=== PATIENT | female | born 1935 | race Caucasian/White ===

== ENCOUNTER 2017-05-12 13:09 | Inpatient (IN) ==
[2017-05-12] MEDS ORDERED: HYDROmorphone 2 MG/1 ML VIAL ONE (13:27)
[2017-05-12] MEDS ORDERED: ONDANSETRON 4 MG/2 ML VIAL IV PRN (13:27)
[2017-05-12] MEDS ORDERED: ONDANSETRON 4 MG/2 ML VIAL ONE (13:27)
[2017-05-12] MEDS ORDERED: HYDROmorphone 2 MG/1 ML VIAL IV PRN ×3 (13:27→15:25)
[2017-05-12] MEDS ORDERED: DIPH/TET/ACEL PERT BOOSTER VACCINE 0.5 ML VIAL IM ONE ×2 (13:28→15:06)
--- NOTE | 2017-05-12 13:54 | Emergency Department Note ---
Juan Manuel Chaves Brittany, am scribing for, and in the presence of, Lalo Walker MD 13:30. Denise Chaves James D, MD, personally performed the services described in this documentation, ascribed by Marysol Zambrano in my presence, and it is both accurate and complete [id number] . Arrival - Arrival Chief Complaint: Extremity Injury Stated Complaint: extremity injury ED Nursing Triage Note: Patient states that she tripped over a phone cord and fell. Right lower extremity injury. Deformity noted to lower extremity. Right lower extremity shortened and externally rotated. 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 Patient reports that she got entangled in a telephone cord in her bedroom and fell, resulting in deformity, shortening, and external rotation of the RLE. Denies hitting her head in the process, but did manage to obtain an upper lip laceration that is actively bleeding. Patient was given Fentanyl per EMS ASSOCIATE SALES REPRESENTATIVE. Denies pain at current, but states majority of her pain was just above the right knee. Patient has normal sensation to the RLE. Denies any abdominal pain, chest pain, back pain, or neck pain. Denies history of Diabetes Mellitus. PMHx of HTN. Not currently on any blood thinners. Patient has no other complaint/pain. Onset (ago): minute(s) Consistency: constant Date of Last Menstrual Period: Hysterectomy Allergies/Adverse Reactions: Allergies Allergy/AdvReac Type Severity Reaction Status Date / Time Penicillins AdvReac Intermediate HIVES Verified 03/17/16 10:59 Review of System - Review of System 12 point system: reviewed and no additional remarkable complaints except as stated - Review of System Constitutional: Absent: fever, weakness Eyes: Absent: vision change Head/Ears/Nose/Throat: Present: see HPI Cardiovascular: Absent: chest pain Gastrointestinal: Absent: abdominal pain Musculoskeletal: Present: as per HPI, leg pain Medical,Surgical,& Family Hx - Medical History Cardio: History of: Hypertension Gastrointestinal: History of: GERD - Surgical History Reproductive Surgeries: Surgical HX of;: Hysterectomy Orthopedic Surgeries: Surgical HX of;: Orthopedic Surgery, Total Knee Replacement - Social History Smoking Status: Never smoker Exam Physical Examination: GENERAL: This is a well-nourished, well-developed white female in no apparent distress. HEENT: Head is normocephalic and atraumatic. Pupils are equally round and reactive to light. Extraocular movement are intact. Oropharynx is bloody secondary to bleeding upper lip laceration with moist mucous membranes. This involves both the moist and dry portions of the upper lip. There is no malocclusion. NECK: Neck is soft and supple without tenderness. There are no masses. There is no lymphadenopathy. Trachea is midline. LUNGS: Lungs are clear to auscultation bilaterally. Chest rises symmetrically. There is no chest wall tenderness. CV: Heart is regular rate and rhythm without murmurs, rubs, or gallops. ABDOMEN: Abdomen is soft, non-tender to palpation. There are no abnormal masses palpated. There is no organomegaly. Bowel sounds are present and active. There is no tenderness to palpation overlying the iliac wings. SKIN: Skin is warm and dry. No rash. EXTREMITIES: Patient has shortening and external rotation of the RLE. Patient has 2 plus dorsalis pedis and posterior tibial pulses bilaterally. Patient has good sensation in the right and left feet to light touch. NEUROLOGIC: Awake, alert, and oriented x4. Cranial nerves II through XII are grossly intact. There are no motorsensory deficits. GCS is 15. PSYCHIATRIC: Normal affect. Normal mood. Vital Signs: Vital Signs Temperature 98 F 05/12/17 13:10 Pulse Rate 67 05/12/17 13:10 Respiratory Rate 20 05/12/17 13:10 Blood Pressure 174/66 05/12/17 13:10 Course Course Narrative: Upon arrival in the emergency department the patient was comfortable after having been given fentanyl in the ambulance. - Consultations Consultation #1: Admit to Dr. Charly Workman. Patient will need IM rodding of right femur. Time: 14:24 Consultation #2: Discussed with hospitalist. Patient will be admitted to their service. Time: 14:32 Procedures - Laceration Laceration 1 Site: lip Side (If applicable): right Size (cm): 5 Description: flap Depth: simple, single layer Local Anesthetic: lidocaine 1%, with epi Amount of Anesthesia Used (mL): 3 Pre-repair: wound explored Skin layer closed with: other (Chromic) Size: 5-0 Number of sutures: 7 Technique: simple, interrupted Results - Labs CBC & BMP: 05/12/17 14:33 Lab Results: I have reviewed the patients labs Labs: Laboratory Tests 05/12/17 14:33 WBC 11.7 RBC 4.18 Hgb 13.4 Hct 37.7 Plt Count 250 Neut % (Auto) 88.2 H Lymph % (Auto) 5.8 L Neut # (Auto) 10.3 H Lymph # (Auto) 0.7 L - EKG EKG results: interpreted by ERMD - Impressions EKG: Sinus rhythm with a rate of 61, first-degree AV block, nonspecific ST-T wave changes. - Diagnostic Findings Procedure: Chest x-ray: image reviewed by me (No infiltrates, no pleural effusions, no cardiomegaly.), CT: image reviewed by me (CT head: No acute intracranial lesion or hemorrhage.), X-ray: image reviewed by me (Right femur x- ray: Proximal transverse femur fracture. Total knee arthrosis is present.) Disposition Clinical Impression: Laceration of upper lip with complication, Fall at home, Contusion of head, Proximal right femur fracture, transvers Case discussed with: patient, patient's family Disposition: Still a Patient Condition: Stable Time of Disposition: 13:54
--- NOTE | 2017-05-12 14:08 | CT Report ---
Exam: CT scan of brain without contrast Date: 05/12/2017 Indication: Pain secondary to fall Comparison: 01/28/2013 Patient's classification: Emergency department Technical: Images were obtained from the skull base to the vertex without the use of intravenous contrast. Dose reduction was performed with decreasing kv and mA and automated exposure Total DLP: 1012.1 mGy*cm Findings: Small low densities present in the lateral aspect of the left basal ganglia suggests of a small tiny lacunar infarct which appears old unchanged from previous study 2012. Small vessel changes are present periventricular subcortical white matter regions. The brainstem cerebellum are otherwise intact. The frontal lobes reveal mild atrophy. The ventricles are slightly enlarged. Vascular calcification of the carotid arteries present. Paranasal sinuses globes and cell and mastoids reveal no acute findings. Nasal septum is deviated towards the left. Impression: 1. 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 No acute hemorrhage infarction or mass effect PROCEDURE INTERPRETED AT [facility] DEPARTMENT OF RADIOLOGY Final Report Signed by: Dr. Kirt Griffiths
--- NOTE | 2017-05-12 14:21 | XRay Report ---
XR chest 1V portable Indication: Extremity paresthesias Comparison: One January 2013 Findings: The heart and mediastinum are normal in size and configuration. The pulmonary vascularity is normal in caliber. Lung volumes are increased with prominent bronchial markings. Shoulder changes are similar to previous exam. No lung infiltrates, effusions, pneumothorax or other abnormality is demonstrated. Impression: Chronic lung changes. No acute process or significant change. PROCEDURE INTERPRETED AT [facility] DEPARTMENT OF RADIOLOGY Final Report Signed by: Dr. Yazan Boswell
--- NOTE | 2017-05-12 14:23 | XRay Report ---
XR femur RT Indication: Pain, falling injury Comparison: None available Findings: There is fracture of the proximal femur at the diaphyseal metaphyseal junction. There is overlap estimated up to 2.8 cm. The distal fragment is displaced posteriorly. The alignment of the joints appears normal. Knee arthroplasty is present, appears within normal limits. Mild hip degenerative change is present. No soft tissue abnormality is seen. Impression: Femur fracture as described above. PROCEDURE INTERPRETED AT [facility] DEPARTMENT OF RADIOLOGY Final Report Signed by: Dr. Yazan Boswell
[2017-05-12 14:54] LABS: Basophils # 0.1 10*3/uL (0.0-0.2); Basophils % 0.4 % (0.0-0.8); Eosinophils # 0.2 10*3/uL (0.0-0.87); Eosinophils % 1.6 % (0.00-10.9); Hematocrit 37.7 VOL% (35.7-47.0); Hemoglobin 13.4 GM/DL (12.0-16.0); Immature Granulocytes % 0.5 %; Immature Granulocytes Absolute 0.06 #; Lymphocytes # 0.7 10*3/uL (1.4-4.0); Lymphocytes % 5.8 % (21.3-54.2); Mean Corpuscular HGB Conc 35.5 GM/DL (32-36); Mean Corpuscular Hemoglobin 32 PG (27-34); Mean Corpuscular Volume 90.2 FL (87-102); Mean Platelet Volume 9.6 FL (9.6-12.0); Monocytes # 0.4 10*3/uL (0.11-0.8); Monocytes % 3.5 % (1.7-12.7); Neutrophils # 10.3 10*3/uL (1.4-7.4); Neutrophils % 88.2 % (38.7-73.9); Platelet Count 250 T/CUMM (130-400); Red Blood Count 4.18 MC/CUMM (3.8-5.5); Red Cell Distribution Width 12.8 % (9.3-17.3); White Blood Count 11.7 T/CUMM (4-12)
[2017-05-12 15:02] LABS: PT Patient Result 10.2 SECS; Partial Thromboplastin Time 26.7 SECS (0-40)
--- NOTE | 2017-05-12 15:04 | Hospitalist History & Physical ---
Assessment and Plan - Time spent with patient Time spent with patient: Greater than 30 minutes (1) Pain of right lower extremity due to injury Status: Acute Assessment and plan: Admit to Hospitalist services. Consult Othropedic (right femur fracture); patient did eat lunch today, Start IV fluids. Will order a.m. labs. Will discuss with Dr Posey for further recommendations. Current Visit: Yes (2) Laceration of upper lip with complication Status: Acute Assessment and plan: She was noted to have a upper lip laceration, stitches were placed in laceration of upper lip in the ER. bruising noted, without active bleeding and minimal swelling upon exam. 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 Will continue to monitor. Current Visit: Yes History of Present Illness Chief complaint: right leg injury History of present illness: Ms. Nails is a very pleasant 81 year old white female presented to [facility] ED for further evaluation for fall at home with right leg pain and upper lip laceration. Patient reports she got up to go into her bedroom at which point she got tangled up in the heating pad cord and fell face first onto the carpeted floor, sustaining immediate right leg pain with deformity. She denies hitting her head during the fall but did sustain an upper lip laceration. Denies breaking any of her teeth. Denies loss of consciousness. Her maid was at her home at the time of the fall and called EMS. She denies any other problems or complaints. Past medical history: Hypertension, GERD. Primary care physician: Dr. Bianchi. After discussion with Dr Walker ER physician and Dr Posey Hospitalist Medicine, it was in agreement, the patient will need to be admitted for further evaluation and treatment. Home medications will be reviewed and reconciliation to follow. Discussed Code Status with patient and her neighbor in the room but they felt or preferred the daughters would need to be present: verbalized the daughter has copies of the living will and/or has power of senior trial attorney. Home Medications Medication Instructions Recorded Confirmed Type Acyclovir [Acyclovir Cap/Tab] 800 mg PO TID 05/12/17 05/12/17 History Atenolol [Atenolol] 50 mg PO BID 05/12/17 05/12/17 History Atorvastatin Calcium [Atorvastatin 5 mg PO BEDTIME 05/12/17 05/12/17 History Calcium] Clorazepate Dipotassium 7.5 - 15 mg PO BEDTIME PRN 05/12/17 05/12/17 History [Clorazepate Dipotassium] Gabapentin [Gabapentin] 100 mg PO QAM 05/12/17 05/12/17 History Gabapentin [Gabapentin] 200 mg PO BEDTIME 05/12/17 05/12/17 History Pantoprazole Sodium [Pantoprazole 40 mg PO DAILY 05/12/17 05/12/17 History Sodium] Potassium Chloride [Potassium 8 meq PO DAILY 05/12/17 05/12/17 History Chloride] Thyroid,Pork [Westhroid] 32.5 mg PO DAILY 05/12/17 05/12/17 History Tramadol HCl [Tramadol Tab] 50 mg PO QID PRN 05/12/17 05/12/17 History Triamterene/Hydrochlorothiazid 1 each PO BID 05/12/17 05/12/17 History [Triamterene-Hctz 37.5-25 mg Cp] cycloSPORINE OPH EMUL [Restasis] 1 drop BOTH EYES BID 05/12/17 05/12/17 History Allergies Allergy/AdvReac Type Severity Reaction Status Date / Time Penicillins AdvReac Intermediate HIVES Verified 03/17/16 10:59 Medical,Surgical,& Family Hx - Medical History Cardio: History of: Hypertension Gastrointestinal: History of: GERD - Surgical History Reproductive Surgeries: Surgical HX of;: Hysterectomy Orthopedic Surgeries: Surgical HX of;: Orthopedic Surgery, Total Knee Replacement - Social History Smoking Status: Never smoker Type of Drug Use: None Marital Status: Lives With:: Alone Review of systems: ROS completed and pertinent positive and negatives in HPI. Exam - Constitutional Vitals: Period Temp Pulse Resp BP Sys/Aguila Pulse Ox Last 24 Hr 98 F-98.0 F 67-67 20-20 174-174/66-66 General appearance: normal weight, no acute distress, under weight - Head Head exam: Present: normal inspection - Eye Eye exam: Present: EOMI Pupils: Present: ARMAND - ENT ENT exam: Present: other (moist mucus membranes, bruising to upper lip (right sided), stitches intact to upper lip laceration/repair) - Neck Neck exam: Present: normal inspection - Respiratory Respiratory exam: Present: clear to auscultation bilaterally. Absent: rhonchi, wheezes - Cardiovascular Cardiovascular exam: Present: regular rate and rhythm - GI/Abdominal GI/Abdominal exam: Present: normal bowel sounds, soft. Absent: guarding, tenderness, rebound - Extremities Exam Extremities exam: Present: other (right lower leg immobilized, 2+ pulses bilateral) - Neurological Exam Neurological exam: Present: alert, oriented X3 - Psychiatric Psychiatric exam: Present: normal affect, normal mood - Skin Skin exam: Present: normal color, warm, dry Results - Labs CBC & BMP: 05/12/17 14:33 05/12/17 14:33 Lab Results: I have reviewed the past 24 hour labs - EKG EKG results: interpreted by ERMD - Diagnostic Findings Procedure: Chest x-ray: report reviewed by me (Chronic lung changes, no acute process or significant change), CT: report reviewed by me (Head: Small vessel ischemic change and 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
[2017-05-12 15:12] LABS: Albumin 3.9 G/DL (3.4-5.0); Bilirubin,Total 0.4 MG/DL (0.2-1.0); Calcium 9.1 MG/DL (8.5-10.1); Osmolality,Calculated 270.2 MOS/KG (273-304); Total Protein 6.4 G/DL (6.4-8.3)
[2017-05-12] MEDS ORDERED: MAGNESIUM HYDROXIDE SUSP 30 ML UDCUP PO PRN (15:16)
[2017-05-12] MEDS ORDERED: PROMETHAZINE 25 MG/1 ML VIAL IM PRN (15:16)
--- NOTE | 2017-05-12 15:31 | Orthopedic Consult Note ---
History of Present Illness Chief complaint: Right femur fracture History of present illness: Ms. Nails is a 81 year old female who fell at home earlier today she tripped in her bedroom sustaining immediate pain deformity about the right leg she was unable to bear weight but [place]'s emergency room where she underwent suture repair of a lip laceration as well as x-rays confirming a diaphyseal fracture of the right proximal femur does not have a local MD she has none of her medications available for review review but does not report to be on any anticoagulant. She ate lunch at noon Examination well-developed nourished female she has some soft tissue swelling consistent with arthritic changes about the hands no pain or deformity at the wrist forearm elbows to shoulder. There is no pain with gentle range of motion of the left lower extremity on the right side a traction splint is in place she can wiggle her toes is easily palpable pulse there is moderate deformity of the right thigh there is no evidence of any open injury. No pain or crepitation about her right knee well-healed incision over the anterior knee consistent with a total knee. Radiographs: AP and lateral of the right thigh confirming a proximal diaphyseal fracture of the right femur there is a total knee in place distally Impression: Right femur fracture Plan: Patient will be admitted for medical consultation as well as n.p.o. status will work on pain control using pillows in Boothe's traction tonight. Plan on intramedullary nailing in the a.m. this was discussed with she and her family is not present will be here in the a.m. again n.p.o. status tonight and pain control. Allergies Allergy/AdvReac Type Severity Reaction Status Date / Time Penicillins AdvReac Intermediate HIVES Verified 03/17/16 10:59 Medical,Surgical,& Family Hx - Medical History Cardio: History of: Hypertension Gastrointestinal: History of: GERD - Surgical History Reproductive Surgeries: Surgical HX of;: Hysterectomy Orthopedic Surgeries: Surgical HX of;: Orthopedic Surgery, Total Knee Replacement - Social History Smoking Status: Never smoker Exam - Constitutional Vitals: Period Temp Pulse Resp BP Sys/Aguila Pulse Ox Last 24 Hr 98 F-98.0 F 67-67 20-20 174-174/66-66 Results - Labs CBC & BMP: 05/12/17 14:33 05/12/17 14:33
[2017-05-12] MEDS ORDERED: SODIUM CHLORIDE 0.9% 500 ML IV STA (15:39)
--- NOTE | 2017-05-12 16:11 | XRay Report ---
XR hand 3V RT Indication: Pain after falling injury Comparison: None available Findings: No evidence of fracture seen. The alignment of the joints appears normal. Degenerative changes are present throughout the hand and wrist most prominent at the scaphoid carpal joint, metacarpophalangeal joint of the third digit distal interphalangeal joint of the second digit and proximal interphalangeal joints of the fourth and fifth digits. No soft tissue abnormality is seen. Impression: No evidence of acute injury demonstrated. PROCEDURE INTERPRETED AT [facility] DEPARTMENT OF RADIOLOGY Final Report Signed by: Dr. Yazan Boswell
[2017-05-12] MEDS: LACTATED RINGERS 1,000 ML IV SCH (18:40)
[2017-05-12] MEDS ORDERED: hydrALAZINE 20 MG/1 ML VIAL IV PRN (19:32)
[2017-05-12] MEDS: METHOCARBAMOL 500 MG TABLET PO SCH (20:44)
[2017-05-12] MEDS: ATENOLOL 50 MG TABLET PO SCH (20:44)
[2017-05-12] MEDS: MEPERIDINE 25 MG/1 ML VIAL IV PRN (21:23)
[2017-05-12] MEDS: TEMAZEPAM 15 MG CAPSULE PO PRN (21:23)
[2017-05-13 02:43] LABS: Basophils % 0.5 % (0.0-0.8); Eosinophils # 0.2 10*3/uL (0.0-0.87); Eosinophils % 2.3 % (0.00-10.9); Hematocrit 32.4 VOL% (35.7-47.0); Hemoglobin 11.2 GM/DL (12.0-16.0); Immature Granulocytes % 0.4 %; Immature Granulocytes Absolute 0.03 #; Lymphocytes # 0.9 10*3/uL (1.4-4.0); Lymphocytes % 12.5 % (21.3-54.2); Mean Corpuscular HGB Conc 34.6 GM/DL (32-36); Mean Corpuscular Hemoglobin 31 PG (27-34); Mean Corpuscular Volume 90.3 FL (87-102); Mean Platelet Volume 9.8 FL (9.6-12.0); Monocytes # 0.7 10*3/uL (0.11-0.8); Monocytes % 9.2 % (1.7-12.7); Neutrophils # 5.6 10*3/uL (1.4-7.4); Neutrophils % 75.1 % (38.7-73.9); Platelet Count 215 T/CUMM (130-400); Red Blood Count 3.59 MC/CUMM (3.8-5.5); Red Cell Distribution Width 12.7 % (9.3-17.3); White Blood Count 7.5 T/CUMM (4-12)
[2017-05-13] MEDS: MEPERIDINE 25 MG/1 ML VIAL IV PRN ×4 (03:01→20:51)
[2017-05-13 03:09] LABS: Calcium 8.6 MG/DL (8.5-10.1); Osmolality,Calculated 269.2 MOS/KG (273-304); Potassium 3.7 MMOL/L (3.5-5.1)
[2017-05-13] MEDS ORDERED: CLINDAMYCIN INJ 900 MG in PREMIX 1 EACH IV ONE (07:00)
--- NOTE | 2017-05-13 07:04 | EKG Report ---
Stationary ECG Study [facility] ER Test Date: 05/12/2017 2:34:20 PM Pat Name: PERI DUARTE Department: Room: 321 Gender: F Clinical Auditor: : [id number] Requested by: Lalo Rodriguez Order Number: [id number] Alhponso MD: MARIO DENISE Intervals [place] Rate: 61 P: 66 CT: 276 QRS: -11 QRSD: 98 T: 67 QT: 405 QTc: 409 Interpretive Statements SINUS RHYTHM WITH PROLONGED CT INTERVAL Electronically Signed On 05-14-17 06:13:57 CDT by MARIO DENISE [email or web address]
[2017-05-13] MEDS: TRIAMTERENE/HCTZ 37.5-25 MG CAPSULE PO SCH ×2 (07:15→08:02)
[2017-05-13] MEDS ORDERED: LACTULOSE 20 GM/30 ML UDCUP PO PRN (09:23)
[2017-05-13] MEDS ORDERED: BISACODYL 10 MG SUPP RECTAL PRN (09:23)
[2017-05-13] MEDS ORDERED: MEPERIDINE 25 MG/1 ML VIAL IV PRN (09:32)
[2017-05-13] MEDS ORDERED: ONDANSETRON 4 MG/2 ML VIAL IV PRN (09:50)
[2017-05-13] MEDS ORDERED: HYDROmorphone 2 MG/1 ML VIAL IV PRN (09:50)
--- NOTE | 2017-05-13 09:50 | XRay Report ---
XR femur RT Indication: IM nail right femur. Fluoroscopy right femur: Fluoroscopy time 93 seconds, 8 captured images. IM nail is now present securing mid shaft femur fracture in anatomic alignment. Incidentally noted TKA is present as well. Impression: Anatomic alignment. PROCEDURE INTERPRETED AT [facility] DEPARTMENT OF RADIOLOGY Final Report Signed by: Ritesh Simms M.D.
[2017-05-13] MEDS ORDERED: LACTATED RINGERS 1,000 ML IV SCH (10:00)
[2017-05-13] MEDS: ATENOLOL 50 MG TABLET PO SCH ×2 (10:33→20:52)
[2017-05-13] MEDS: METHOCARBAMOL 500 MG TABLET PO SCH ×3 (10:33→20:52)
[2017-05-13] MEDS ORDERED: fentaNYL 100 MCG/2 ML VIAL ONE (11:31)
[2017-05-13] MEDS ORDERED: SODIUM CHLORIDE 0.9% 100 ML IV ONE (11:31)
[2017-05-13] MEDS ORDERED: GLYCOPYRROLATE 0.4 MG/2 ML VIAL ONE (11:31)
[2017-05-13] MEDS ORDERED: LACTATED RINGERS 1,000 ML IV ONE (11:31)
[2017-05-13] MEDS ORDERED: ACETAMINOPHEN 1,000 MG/100 ML VIAL IV ONE (11:31)
[2017-05-13] MEDS ORDERED: PROPOFOL 200 MG/20 ML VIAL IV ONE (11:31)
[2017-05-13] MEDS ORDERED: ONDANSETRON 4 MG/2 ML VIAL ONE (11:31)
--- NOTE | 2017-05-13 11:44 | Anesthesia Post-Op ---
Anesthesia Post OP - Post Ansesthetic Evaluation Patient seen in post op: Yes Resp: within normal limits CV: within normal limits Mental: within normal limits Temp: within normal limits [id number]: within normal limits Nausea and Vomiting: within normal limits Pain: within normal limits
[2017-05-13] MEDS: LACTATED RINGERS 1,000 ML IV SCH (11:47)
--- NOTE | 2017-05-13 12:23 | Hospitalist Progress Note ---
Assessment and Plan - Time spent with patient Time spent with patient: Less than 30 minutes (1) Pain of right lower extremity due to injury Status: Acute Assessment and plan: 05/13/17 - S/P IM nailing right femur fracture. Back in room and doing well at present, dressings clean, dry and intact. Ice Pack therapy in use. Pulses bilaterally palpable. Will continue to monitor. Will order a.m. labs. 05/12/17 -Admit to Hospitalist services. Consult Othropedic (right femur fracture ); patient did eat lunch today, Start IV fluids. Will order a.m. labs. Will discuss with Dr Posey for further recommendations. Current Visit: Yes (2) Laceration of upper lip with complication Status: Acute Assessment and plan: 05/13/17 - Upper lip laceration with repair (stitches intact); noted to have some bruising and swelling. Without any active bleeding or drainage. Will continue to monitor. 05/12/17 - She was noted to have a upper lip laceration, stitches were placed in laceration of upper lip in the ER. bruising noted, without active bleeding and minimal swelling upon exam. 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 Will continue to monitor. Current Visit: Yes Hospitalist: Subjective Interval history: 05/13/17 - patient awake, alert. She recently returned to room following this a.m. scheduled surgery of intramedullary nailing right femur. She appears comfortable at this time and no acute distress. Lungs clear. Abd soft. Soto intact draining clear yellow urine. Dressing to right leg dry and intact with ice pack therapy in use. Pulses bilaterally palpable. Patient verbalized pain medication for management of pain is helping at this time. Exam - Constitutional Vitals: Period Temp Pulse Resp BP Sys/Aguila Pulse Ox Last 24 Hr 97.2 F-98.4 F 58-92 14-20 102-174/61-76 94-100 General appearance: normal weight - Head Head exam: Present: normal inspection - Eye Eye exam: Present: EOMI Pupils: Present: ARMAND - ENT ENT exam: Present: other (moist mucus membranes) - Neck Neck exam: Present: normal inspection - Respiratory Respiratory exam: Present: clear to auscultation bilaterally - Cardiovascular Cardiovascular exam: Present: regular rate and rhythm - GI/Abdominal GI/Abdominal exam: Present: normal bowel sounds, soft. Absent: tenderness, rebound - Extremities Exam Extremities exam: Present: other (s/p right femur fracture repair: right leg with clean dry intact dressings, ice pack therapy to surgical site). Absent: edema - Neurological Exam Neurological exam: Present: alert, oriented X3 - Psychiatric Psychiatric exam: Present: normal affect, normal mood - Skin Skin exam: Present: normal color, warm, dry Results - Labs CBC & BMP: 05/13/17 02:22 05/13/17 02:22 Lab Results: I have reviewed the past 24 hour labs - Diagnostic Findings Procedure: X-ray: report reviewed by me (Right Femur IM nailing: anatomic alignment) Quality Measures - VTE Contraindication to Pharmacological VTE Prophylaxis: Extremities with Hemorrhage
[2017-05-13] MEDS: CLINDAMYCIN INJ 900 MG in PREMIX 1 EACH IV SCH (15:57)
[2017-05-13] MEDS: ALUMINUM/MAGNES/SIMETH MAX STR 30 ML UDCUP PO PRN (17:09)
--- NOTE | 2017-05-13 19:00 | Operative Note ---
DATE: 05/13/2017 PREOPERATIVE DIAGNOSIS: RIGHT FEMUR FRACTURE. POSTOPERATIVE DIAGNOSIS: RIGHT FEMUR FRACTURE. OPERATIVE PROCEDURE: Intramedullary nailing, right femur. SURGEON: Lalo Parks Jr., MD. ANESTHESIA: Spinal. INDICATION: A 81-year-old white female fell at home yesterday sustaining a diaphyseal fracture to th e proximal right femoral shaft. She has been cleared medically for surgery. I have discussed with marivel tyson and her family the diagnosis and treatment recommendations including the need for intramedullary d evice. OPERATIVE PROCEDURE: The patient was brought to the operating room and under spinal anesthetic posit ioned on the fracture table. The left leg was placed in a well padded leg carias and the right place d in a traction boot. Gentle traction and rotation were applied to the limb to confirm alignment. Adilson tyson hip was then prepped and draped in the usual sterile manner. She received clindamycin perioperati vely. A small incision was made proximal to the trochanter of the right hip. Sharp dissection was c arried down through the skin and subcutaneous tissue. The gluteal musculature was split and starting points obtained in the trochanter. A guide pin was then passed across the fracture site into the di stal fragment. After that measuring 400 mm, sequential reamings were performed up to 10.5 mm. A 9 x 400 mm trochanter Synthes femoral nail was inserted. It was locked in the dynamic slot proximally t hrough the outrigger system slot distally x2 freehand technique. Reduction and internal fixation was felt to be satisfactory. All wounds were irrigated and closed in standard fashion using 0-Vicryl fo r the gluteal layer, 2-0 Vicryl subcutaneous layer and laureen for skin. Locking portals also closed with laureen for the distal lock as well as the proximal. Sterile dressings were applied. She was then moved to her bed and taken to recovery room stable condition. ESTIMATED BLOOD LOSS: 100 mL. COMPLICATIONS: None. COUNTS: Correct.
[2017-05-13] MEDS: GABAPENTIN 100 MG CAPSULE PO SCH (20:51)
[2017-05-13] MEDS: APIXABAN 2.5 MG TABLET PO SCH (20:52)
[2017-05-13] MEDS: diphenhydrAMINE CAP 25 MG CAPSULE PO PRN (21:25)
[2017-05-14] MEDS: CLINDAMYCIN INJ 900 MG in PREMIX 1 EACH IV SCH ×2 (00:18→11:04)
[2017-05-14 05:32] LABS: Basophils % 0.6 % (0.0-0.8); Eosinophils # 0.2 10*3/uL (0.0-0.87); Eosinophils % 3.4 % (0.00-10.9); Hematocrit 27.2 VOL% (35.7-47.0); Hemoglobin 9.7 GM/DL (12.0-16.0); Immature Granulocytes % 0.3 %; Immature Granulocytes Absolute 0.02 #; Lymphocytes % 14.8 % (21.3-54.2); Mean Corpuscular HGB Conc 35.7 GM/DL (32-36); Mean Corpuscular Hemoglobin 32 PG (27-34); Mean Corpuscular Volume 89.8 FL (87-102); Mean Platelet Volume 10.1 FL (9.6-12.0); Monocytes # 0.6 10*3/uL (0.11-0.8); Monocytes % 9.4 % (1.7-12.7); Neutrophils # 4.6 10*3/uL (1.4-7.4); Neutrophils % 71.5 % (38.7-73.9); Platelet Count 189 T/CUMM (130-400); Red Blood Count 3.03 MC/CUMM (3.8-5.5); Red Cell Distribution Width 12.5 % (9.3-17.3); White Blood Count 6.5 T/CUMM (4-12)
[2017-05-14] MEDS: LACTATED RINGERS 1,000 ML IV SCH (07:36)
--- NOTE | 2017-05-14 08:39 | Hospitalist Progress Note ---
Assessment and Plan - Time spent with patient Time spent with patient: Less than 30 minutes (1) Pain of right lower extremity due to injury Status: Acute Assessment and plan: 05/14/17 - Dressings clean, dry and intact right femur IM nailing. Bilateral pedal pulses palpable. Will continue to monitor. Will continue PRN medications for pain management. Will continue Ice Pack therapy for pain and inflammation. A.M. labs ordered. Will discuss with Dr Ferrera for any further recommendations. 05/13/17 - S/P IM nailing right femur fracture. Back in room and doing well at present, dressings clean, dry and intact. Ice Pack therapy in use. Pulses bilaterally palpable. Will continue to monitor. Will order a.m. labs. 05/12/17 -Admit to Hospitalist services. Consult Othropedic (right femur fracture ); patient did eat lunch today, Start IV fluids. Will order a.m. labs. Will discuss with Dr Posey for further recommendations. Current Visit: Yes (2) Laceration of upper lip with complication Status: Acute Assessment and plan: 05/14/17 Upper lip laceration with stitches intact, sore but improving. Healing without any drainage noted. Will continue to monitor. 05/13/17 - Upper lip laceration with repair (stitches intact); noted to have some bruising and swelling. Without any active bleeding or drainage. Will continue to monitor. 05/12/17 - She was noted to have a upper lip laceration, stitches were placed in laceration of upper lip in the ER. bruising noted, without active bleeding and minimal swelling upon exam. 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 Will continue to monitor. Current Visit: Yes Hospitalist: Subjective Interval history: 05/14/17 - Patient seen and chart reviewed. Ms finney verbalized a pretty good night. Her appetite is better this morning and tolerating breakfast. Her right leg pain is controlled at present. Pulses 2+ bilateral pedal pulses. Dressing dry and intact with ice pack therapy in use. Her upper lip laceration with stitches intact, no active bleeding and no drainage. Soto intact and draining clear yellow urine. She verbalized reflux yesterday and the mylanta seems to have helped. Denies nausea, chills, cough, or shortness of breath. Exam - Constitutional Vitals: Period Temp Pulse Resp BP Sys/Aguila Pulse Ox Last 24 Hr 97.9 F-99.2 F 65-92 14-20 102-137/58-77 91-100 General appearance: normal weight - Head Head exam: Present: normal inspection - Eye Eye exam: Present: EOMI Pupils: Present: ARMAND - ENT ENT exam: Present: other (moist membranes) - Neck Neck exam: Present: normal inspection - Respiratory Respiratory exam: Present: clear to auscultation bilaterally. Absent: rhonchi, wheezes - Cardiovascular Cardiovascular exam: Present: regular rate and rhythm - GI/Abdominal GI/Abdominal exam: Present: normal bowel sounds, soft. Absent: firm, rebound - Extremities Exam Extremities exam: Present: other (right leg dressings clean, dry intact s/p right IM nailing. ). Absent: edema - Neurological Exam Neurological exam: Present: alert, oriented X3, CN II-XII intact. Absent: normal gait (unable to assess ) - Psychiatric Psychiatric exam: Present: normal affect, normal mood - Skin Skin exam: Present: normal color, warm, dry, other (upper lip laceration ( repaired in the ED) clean, dry,) Results - Labs CBC & BMP: 05/14/17 04:59 05/13/17 02:22 Lab Results: I have reviewed the past 24 hour labs Quality Measures - VTE Contraindication to Pharmacological VTE Prophylaxis: Extremities with Hemorrhage
--- NOTE | 2017-05-14 09:14 | Orthopedic Progress Note ---
Orthopedics - Subjective Interval history: Hemoglobin is 9.7 ready for PT will remove Soto once started to mobilize also INT. Follow H&H. Discussed with [facility] bed rehab options Exam - Constitutional Vitals: Period Temp Pulse Resp BP Sys/Aguila Pulse Ox Last 24 Hr 97.9 F-99.2 F 65-92 14-20 102-137/58-77 91-100 Results - Labs CBC & BMP: 05/14/17 04:59 05/13/17 02:22 Quality Measures - VTE Contraindication to Pharmacological VTE Prophylaxis: Extremities with Hemorrhage
[2017-05-14] MEDS ORDERED: MEPERIDINE 50 MG TABLET PO PRN (09:15)
[2017-05-14] MEDS: APIXABAN 2.5 MG TABLET PO SCH ×2 (10:39→21:42)
[2017-05-14] MEDS: POTASSIUM CHLORIDE 20 MEQ TABLET PO SCH (10:40)
[2017-05-14] MEDS: GABAPENTIN 100 MG CAPSULE PO SCH ×3 (10:40→21:42)
[2017-05-14] MEDS: METHOCARBAMOL 500 MG TABLET PO SCH ×3 (10:41→21:42)
[2017-05-14] MEDS: ATENOLOL 50 MG TABLET PO SCH ×2 (10:42→21:42)
[2017-05-14] MEDS: diphenhydrAMINE CAP 25 MG CAPSULE PO PRN (10:42)
[2017-05-14] MEDS: MEPERIDINE 50 MG TABLET PO PRN ×2 (11:12→15:25)
[2017-05-14] MEDS: ALUMINUM/MAGNES/SIMETH MAX STR 30 ML UDCUP PO PRN (11:34)
[2017-05-14] MEDS: TRIAMTERENE/HCTZ 37.5-25 MG CAPSULE PO SCH (11:46)
[2017-05-14] MEDS: ONDANSETRON 4 MG/2 ML VIAL IV PRN ×2 (12:55→16:53)
[2017-05-14] MEDS: PANTOPRAZOLE 40 MG TABLET PO SCH (21:42)
[2017-05-15] MEDS: MEPERIDINE 50 MG TABLET PO PRN ×4 (01:41→20:21)
[2017-05-15 05:20] LABS: Basophils % 0.3 % (0.0-0.8); Eosinophils # 0.2 10*3/uL (0.0-0.87); Eosinophils % 2.4 % (0.00-10.9); Hematocrit 27.8 VOL% (35.7-47.0); Hemoglobin 9.8 GM/DL (12.0-16.0); Immature Granulocytes % 0.4 %; Immature Granulocytes Absolute 0.03 #; Lymphocytes # 0.9 10*3/uL (1.4-4.0); Lymphocytes % 12.7 % (21.3-54.2); Mean Corpuscular HGB Conc 35.3 GM/DL (32-36); Mean Corpuscular Hemoglobin 32 PG (27-34); Mean Platelet Volume 10.7 FL (9.6-12.0); Monocytes # 0.9 10*3/uL (0.11-0.8); Monocytes % 13.3 % (1.7-12.7); Neutrophils # 4.7 10*3/uL (1.4-7.4); Neutrophils % 70.9 % (38.7-73.9); Platelet Count 205 T/CUMM (130-400); Red Blood Count 3.09 MC/CUMM (3.8-5.5); Red Cell Distribution Width 12.5 % (9.3-17.3); White Blood Count 6.7 T/CUMM (4-12)
[2017-05-15 06:05] LABS: Calcium 8.4 MG/DL (8.5-10.1); Free T4 (Free Thyroxine) 1.13 NG/DL (0.76-1.46); Magnesium 1.6 MG/DL (1.8-2.4); Osmolality,Calculated 257.8 MOS/KG (273-304); Potassium 4.4 MMOL/L (3.5-5.1)
[2017-05-15] MEDS: GABAPENTIN 100 MG CAPSULE PO SCH ×3 (08:37→20:21)
[2017-05-15] MEDS: METHOCARBAMOL 500 MG TABLET PO SCH ×3 (08:37→20:23)
[2017-05-15] MEDS: ATENOLOL 50 MG TABLET PO SCH ×2 (08:37→20:23)
[2017-05-15] MEDS: APIXABAN 2.5 MG TABLET PO SCH ×2 (09:55→20:24)
[2017-05-15] MEDS: PANTOPRAZOLE 40 MG TABLET PO SCH (09:55)
[2017-05-15] MEDS: POTASSIUM CHLORIDE 20 MEQ TABLET PO SCH (09:55)
[2017-05-15] MEDS: TRIAMTERENE/HCTZ 37.5-25 MG CAPSULE PO SCH (09:58)
--- NOTE | 2017-05-15 11:23 | Orthopedic Progress Note ---
Orthopedics - Subjective Interval history: H&H stable already up in chair with PT today did well. Continue working with PT and advancing weight-bear as tolerated on the right. Awaiting discharge planning for rehab. Exam - Constitutional Vitals: Period Temp Pulse Resp BP Sys/Aguila Pulse Ox Last 24 Hr 97.1 F-99.4 F 63-77 16-18 114-139/60-81 94-98 Results - Labs CBC & BMP: 05/15/17 04:06 05/15/17 04:06 Quality Measures - VTE Contraindication to Pharmacological VTE Prophylaxis: Extremities with Hemorrhage Specialty Discharge - Follow Up or Referrals Follow up with: Lalo Parks Jr., MD [Physician] -
--- NOTE | 2017-05-15 15:31 | Hospitalist Progress Note ---
Assessment and Plan (1) Right femoral fracture Status: Acute Assessment and plan: s/p repair per orthopedic; pain control; awaiting placement for rehab Current Visit: Yes Hospitalist: Subjective Interval history: Ms. Nails is a 81 y/o female with history of HTN that was admitted for a right femur fracture s/p repair. Patient is without complaints. Exam - Constitutional Vitals: Period Temp Pulse Resp BP Sys/Aguila Pulse Ox Last 24 Hr 97.1 F-99.4 F 65-77 18-18 124-139/67-82 95-98 General appearance: normal weight, no acute distress - Head Head exam: Present: normal inspection - Eye Eye exam: Present: EOMI - Neck Neck exam: Present: normal inspection - Respiratory Respiratory exam: Present: clear to auscultation bilaterally - Cardiovascular Cardiovascular exam: Present: regular rate and rhythm - GI/Abdominal GI/Abdominal exam: Present: normal bowel sounds, soft. Absent: tenderness - Extremities Exam Extremities exam: Present: other (right thigh/hip incision bandages are clean dry and intact). Absent: edema Results - Labs CBC & BMP: 05/15/17 04:06 05/15/17 04:06 Quality Measures - VTE Contraindication to Pharmacological VTE Prophylaxis: Extremities with Hemorrhage Specialty Discharge - Follow Up or Referrals Follow up with: Lalo Parks Jr., MD [Physician] -
[2017-05-15] MEDS: TEMAZEPAM 15 MG CAPSULE PO PRN (22:55)
[2017-05-16] MEDS: MEPERIDINE 50 MG TABLET PO PRN ×5 (01:40→21:46)
[2017-05-16 07:25] LABS: Basophils % 0.4 % (0.0-0.8); Eosinophils # 0.2 10*3/uL (0.0-0.87); Eosinophils % 4.2 % (0.00-10.9); Hemoglobin 9.5 GM/DL (12.0-16.0); Immature Granulocytes % 0.5 %; Immature Granulocytes Absolute 0.03 #; Lymphocytes # 0.8 10*3/uL (1.4-4.0); Lymphocytes % 14.9 % (21.3-54.2); Mean Corpuscular HGB Conc 35.2 GM/DL (32-36); Mean Corpuscular Hemoglobin 32 PG (27-34); Mean Corpuscular Volume 90.6 FL (87-102); Mean Platelet Volume 9.8 FL (9.6-12.0); Monocytes # 0.8 10*3/uL (0.11-0.8); Monocytes % 14.2 % (1.7-12.7); Neutrophils # 3.6 10*3/uL (1.4-7.4); Neutrophils % 65.8 % (38.7-73.9); Platelet Count 207 T/CUMM (130-400); Red Blood Count 2.98 MC/CUMM (3.8-5.5); Red Cell Distribution Width 12.4 % (9.3-17.3); White Blood Count 5.5 T/CUMM (4-12)
[2017-05-16 08:00] LABS: Albumin 2.7 G/DL (3.4-5.0); Bilirubin,Total 1.8 MG/DL (0.2-1.0); Calcium 8.6 MG/DL (8.5-10.1); Osmolality,Calculated 266.2 MOS/KG (273-304); Potassium 4.2 MMOL/L (3.5-5.1); Total Protein 4.9 G/DL (6.4-8.3)
[2017-05-16] MEDS: ATENOLOL 50 MG TABLET PO SCH ×2 (08:27→21:48)
[2017-05-16] MEDS: POTASSIUM CHLORIDE 20 MEQ TABLET PO SCH (08:27)
[2017-05-16] MEDS: METHOCARBAMOL 500 MG TABLET PO SCH ×3 (08:27→21:48)
[2017-05-16] MEDS: GABAPENTIN 100 MG CAPSULE PO SCH ×3 (08:27→21:48)
[2017-05-16] MEDS: APIXABAN 2.5 MG TABLET PO SCH ×2 (08:27→21:48)
[2017-05-16] MEDS: TRIAMTERENE/HCTZ 37.5-25 MG CAPSULE PO SCH (08:27)
[2017-05-16] MEDS: PANTOPRAZOLE 40 MG TABLET PO SCH (08:28)
--- NOTE | 2017-05-16 08:54 | Orthopedic Progress Note ---
Orthopedics - Subjective Interval history: Pain control good hemoglobin hematocrit stable. Continue working on PT needs to have BM today rehab soon Exam - Constitutional Vitals: Period Temp Pulse Resp BP Sys/Aguila Pulse Ox Last 24 Hr 97.6 F-98.0 F 63-73 16-18 116-144/44-82 94-97 Results - Labs CBC & BMP: 05/16/17 07:10 05/16/17 07:10 Quality Measures - VTE Contraindication to Pharmacological VTE Prophylaxis: Extremities with Hemorrhage Specialty Discharge - Follow Up or Referrals Follow up with: Lalo Parks Jr., MD [Physician] -
[2017-05-16] MEDS: ACETAMINOPHEN 325 MG TABLET PO PRN (10:32)
--- NOTE | 2017-05-16 12:49 | Hospitalist Progress Note ---
Hospitalist: Subjective Interval history: Pt reports her leg pain is relatively under control. No fever. No cp or SOB. Tolerating some po. No BM since admission per pt. She has stood and participated with therapy. Exam - Constitutional Vitals: Period Temp Pulse Resp BP Sys/Aguila Pulse Ox Last 24 Hr 97.6 F-98.0 F 63-73 16-18 116-144/44-67 94-97 Exam: A and O x 3 RRR no M CTAB nonlabored Soft, NT, ND, +BS Warm no c/c. She is nonpitting edema of left upper thigh.. Good cap refill and sensation is intact. Results - Labs CBC & BMP: 05/16/17 07:10 05/16/17 07:10 - Impressions 1. Acute right proximal femoral fracture s/p fall s/p repair - Ortho following. Cont routine post op care. PT/OT. Fall precautions 2. Laceration of upper lip due to fall - local wound care 3. Essential HTN- controlled - On Atenolol, Triamterene/ HCTZ. Daughter states she has a history chronic lower extremity edema. She does not state she has a hx of CHF 4. Constipation - MOM given this am. Will write for Dulcolax and Soap Suds enema prn 5. Mild hyponatremia - likely due to triamterene/ hctz. Na 134 today. Daughter states she has been on this for years. 6. Suspected neuropathy - Gabapentin. 7. GERD - On Protonix. 8. 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 9. Dyslipidemia - not on statin 10. Chronic hypothyroidism - on thyroid replacement meds. Check TSH DVT prophylaxis- Eunice D/W nurse, pt and daughter, Yissel. All questions answered. Plans are to go to the swingbed at discharge once she has a bowel movement. Quality Measures - VTE Contraindication to Pharmacological VTE Prophylaxis: Extremities with Hemorrhage Specialty Discharge - Follow Up or Referrals Follow up with: Lalo Parks Jr., MD [Physician] -
[2017-05-16] MEDS ORDERED: BISACODYL 5 MG TABLET PO PRN (13:19)
[2017-05-16] MEDS: TEMAZEPAM 15 MG CAPSULE PO PRN (21:46)
[2017-05-17] MEDS: MEPERIDINE 50 MG TABLET PO PRN ×2 (01:50→08:58)
[2017-05-17] MEDS: ACETAMINOPHEN 325 MG TABLET PO PRN (03:01)
[2017-05-17] MEDS: GABAPENTIN 100 MG CAPSULE PO SCH (08:57)
[2017-05-17] MEDS: METHOCARBAMOL 500 MG TABLET PO SCH (08:57)
[2017-05-17] MEDS: POTASSIUM CHLORIDE 20 MEQ TABLET PO SCH (08:58)
[2017-05-17] MEDS: ATENOLOL 50 MG TABLET PO SCH (08:58)
[2017-05-17] MEDS: APIXABAN 2.5 MG TABLET PO SCH (08:58)
[2017-05-17] MEDS: TRIAMTERENE/HCTZ 37.5-25 MG CAPSULE PO SCH (08:58)
[2017-05-17] MEDS: PANTOPRAZOLE 40 MG TABLET PO SCH (08:58)
--- NOTE | 2017-05-17 09:00 | Orthopedic Progress Note ---
Orthopedics - Subjective Interval history: Comfortable mobilizing better dressings dry discussed PT plan also home discharge after rehab. Excepted today Exam - Constitutional Vitals: Period Temp Pulse Resp BP Sys/Aguila Pulse Ox Last 24 Hr 97.9 F-98.0 F 57-73 16-18 116-153/47-74 96-100 Results - Labs CBC & BMP: 05/16/17 07:10 05/16/17 07:10 Quality Measures - VTE Contraindication to Pharmacological VTE Prophylaxis: Extremities with Hemorrhage Specialty Discharge - Follow Up or Referrals Follow up with: Lalo Parks Jr., MD [Physician] -
--- NOTE | 2017-05-17 09:03 | Discharge Summary ---
Hospital Course - Hospital Course Hospital Course: Admitted following fall with right femur fracture underwent repair discharged to rehab Diagnosis - Discharge Diagnosis (1) Right femoral shaft fracture Status: Acute Specialty Discharge - Follow Up or Referrals Follow up with: Lalo Parks Jr., MD [Physician] - Discharge Plan - Discharge Data Disposition: Disch/Xfer-Ip Rehab Fac Condition at Discharge: Stable Discharge Diet: advance to your usual diet Activity: ambulate only with your walker, as per physical therapy, increase activity as tolerated Hygiene: may shower, keep area(s) dry Weight Bearing at Discharge: weight bear as tolerated - Discharge Medications New Alum/Mag/Simeth Max Str Liquid [Mylanta Max Strength Liquid] 30 ml PO Q4H PRN PRN Reason: Dyspepsia Bisacodyl Supp [Dulcolax Supp] 10 mg RECTAL DAILY PRN supp PRN Reason: Constipation Bisacodyl Tab [Dulcolax Tab] 10 mg PO Q4H PRN tablet PRN Reason: Constipation Gabapentin Cap/Tab [Neurontin Cap/Tab] 200 mg PO TID capsule Magnesium Hydroxide Susp [Milk of Magnesia] 30 ml PO Q6H PRN PRN Reason: Constipation Meperidine Tab [Demerol Tab] 50 mg PO Q6H PRN #20 tablet PRN Reason: Pain Severe (8-10) Triamterene/Hctz 37.5-25 Cap [Dyazide] 1 capsule PO DAILY capsule Meperidine Tab [Demerol Tab] 50 mg PO Q4H PRN #20 tablet PRN Reason: Pain Severe (8-10) Acetaminophen Tab [Tylenol Tab] 650 mg PO Q6H PRN tablet PRN Reason: Pain Mild (1-3) Apixaban [Eliquis] 2.5 mg PO BID tablet Potassium Chloride Cap/Tab [K Dur] 40 meq PO DAILY tablet Calcium Carbonate/Vitamin D3 [Calcium 600 + Vit D 400 Tablet] 1 each PO DAILY #30 tablet Continue cycloSPORINE OPH EMUL [Restasis] 1 drop BOTH EYES BID Acyclovir [Acyclovir Cap/Tab] 800 mg PO TID Clorazepate Dipotassium 7.5 - 15 mg PO BEDTIME PRN PRN Reason: Anxiety Atorvastatin Calcium 5 mg PO BEDTIME Atenolol 50 mg PO BID Pantoprazole Sodium 40 mg PO DAILY Thyroid,Pork [Westhroid] 32.5 mg PO DAILY Discontinued Potassium Chloride [Potassium Chloride] 8 meq PO DAILY Gabapentin [Gabapentin] 200 mg PO BEDTIME Tramadol HCl [Tramadol Tab] 50 mg PO QID PRN PRN Reason: Pain Gabapentin [Gabapentin] 100 mg PO QAM Triamterene/Hydrochlorothiazid [Triamterene-Hctz 37.5-25 mg Cp] 1 each PO BID - Follow Up or Referral Follow Up: Lalo Parks Jr., MD [Physician] - - Forms/Instructions Additional Discharge Instructions: Discharge to [facility] continue with home medications Demerol 50 mg half tab to 1 tab p.o. every 6 hours as needed pain laureen to be removed and wound Steri-Stripped May 26. Mobilizing with PT advancing towards full weight-bear on the right Eliquis 1 more week then switch to baby aspirin once a day. Follow-up with me 3 weeks Exam - Constitutional Vitals: Period Temp Pulse Resp BP Sys/Aguila Pulse Ox Last 24 Hr 97.9 F-98.0 F 57-73 16-18 116-153/47-74 96-100 Discharge Results Labs on day of discharge: Labs from last 24 hours 05/16/17 05/16/17 07:08 07:08 25-OH Vitamin D Total 67.0 TSH 3rd Generation 1.580 DS: Provider Date of admission: 05/12/17 15:06 Primary care physician: Patrick Bianchi DO Attending physician on admission: Leonardo Posey MD Consults: 05/12/17 15:19 Consult to Anesthesiology [CONS] Routine Consulting Provider: Reason for Anesthesiology: Pre-op Clearance 05/12/17 18:13 Consult to Pastoral Services [CONS] Routine Comment: Pastoral Screen: Request [place]verse[place] Visit Pastoral Screen Source of Request: Patient 05/13/17 09:23 Consult to Physical Therapy [CONS] Routine Reason for Physical Therapy: Evaluate and Treat Consult Comment: Advance to weight-bear as tolerated on right 05/13/17 09:27 Consult to Case Mgmt/Social Srvs [CONS] Routine Reason for Case Mgmt/Social Srvs: Home Health Rehab Equipment Consult to Occupational Therapy [CONS] Routine Reason for Occupational Therapy: Evaluate and Treat Discharging clinician: Lalo Parks Jr., MD
[2017-05-17 11:55] VITALS: BP 129/67
--- NOTE | 2017-05-17 12:12 | Hospitalist Progress Note ---
Hospitalist: Subjective Interval history: Pt did have BM overnight. No fever. No cp or SOB. No nausea or vomiting. Participating well with therapy Exam - Constitutional Vitals: Period Temp Pulse Resp BP Sys/Aguila Pulse Ox Last 24 Hr 97.9 F-98.2 F 57-73 16-18 116-153/47-74 96-100 Exam: A and O x 3 RRR no M CTAB nonlabored Soft, NT, ND, +BS Warm no c/c. She is nonpitting edema of left upper thigh.. Good cap refill and sensation is intact. Results - Labs CBC & BMP: 05/16/17 07:10 05/16/17 07:10 - Impressions 1. Acute right proximal femoral fracture s/p fall s/p repair - Ortho following. Cont routine post op care. PT/OT. Fall precautions 2. Laceration of upper lip due to fall - local wound care 3. Essential HTN- controlled - On Atenolol, Triamterene/ HCTZ. Daughter states she has a history chronic lower extremity edema. She does not state she has a hx of CHF 4. Constipation - MOM given this am. Will write for Dulcolax and Soap Suds enema prn 5. Mild hyponatremia - likely due to triamterene/ hctz. Na 134 today. Daughter states she has been on this for years. 6. Suspected neuropathy - Gabapentin. 7. GERD - On Protonix. 8. 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 9. Dyslipidemia - not on statin 10. Chronic hypothyroidism - on thyroid replacement meds. Check TSH DVT prophylaxis- Eunice D/W nurse, pt and daughter, Yissel. All questions answered. Plans are to go to the swingbed today. DC summary and Med rec completed. DC summary completed per Dr. Lalo Parks. Thanks. Quality Measures - VTE Contraindication to Pharmacological VTE Prophylaxis: Extremities with Hemorrhage Specialty Discharge - Follow Up or Referrals Follow up with: Lalo Parks Jr., MD [Physician] - 06/07/17 8:00 am (3 weeks)
== END 2017-05-17 12:07 | DRG 481 ==
LOC: EDUNIT# → EDBD → N.ED 13:09 → SUATTDRO 15:06 → N.EDINP 15:06 → N.3E 16:07
PROVIDERS: ADMIT Hospitalist; ATTEND Pediatrics

== ENCOUNTER 2017-07-24 10:57 | Inpatient (IN) ==
[2017-07-24] MEDS ORDERED: ASPIRIN 325 MG TABLET PO STA (11:28)
[2017-07-24] MEDS ORDERED: SODIUM CHLORIDE 0.9% 500 ML IV STA (11:28)
[2017-07-24] MEDS ORDERED: ASPIRIN 325 MG TABLET ONE (11:35)
--- NOTE | 2017-07-24 11:40 | Emergency Department Note ---
Adryan Chaves Brooke, am scribing for, and in the presence of, Hans Garay MD 11 :33. Tanisha Chaves Charles R, MD, personally performed the services described in this documentation, ascribed by Ivanna Cornelius in my presence, and it is both accurate and complete . Arrival - Arrival Chief Complaint: Neuro Stated Complaint: CVA S/S ED Nursing Triage Note: pt had confusion started about 1999 last night. pt has had some expressive aphasia. pt has rt faical droop-old and rt side weakness Mode of Arrival: Stretcher Limitations: No Limitations Source: Patient, EMS, RN Notes Reviewed Time Seen by Provider: 07/24/17 11:03 - History of Present Illness HPI Narrative: Patient is a 81 year old female brought into the ED by EMS with c/o confusion, right sided weakness, and expressive aphasia. These symptoms started last night. She says she "could not think clear about anything" and was "not speaking well." Patient had a headache, over the right eye, that was "not severe." Patient says her right side feels weaker than the left side. Patient went to sleep and then woke up this morning feeling the same way but she states "my headache is severe today." Patient's neighbor says she has not noticed any facial drooping but says her speech has gotten better with time. Patient denies having any chest pain and Neighbor says Patient did have diarrhea on Monday. Patient does not have history of CVA but she does have PMHx of HTN, thyroid disorder, and GERD. Patient broke her right femur, eight weeks ago, from a fall. She has therapy that comes to her home two times a week. She also has around the clock help. Allergies/Adverse Reactions: Allergies Allergy/AdvReac Type Severity Reaction Status Date / Time Penicillins Allergy Intermediate HIVES Verified 05/13/17 09:32 Latex, Natural Rubber Allergy Unknown/Unable Verified 07/24/17 12:17 to obtain Home Medications: Home Medications Medication Instructions Recorded Confirmed Type Acyclovir [Acyclovir Cap/Tab] 800 mg PO TID 05/12/17 07/24/17 History Atenolol 50 mg PO BID 05/12/17 07/24/17 History Clorazepate Dipotassium 7.5 - 15 mg PO BEDTIME PRN 05/12/17 07/24/17 History Thyroid,Pork [Westhroid] 32.5 mg PO DAILY 05/12/17 07/24/17 History cycloSPORINE OPH EMUL [Restasis] 1 drop BOTH EYES BID 05/12/17 07/24/17 History Calcium Carbonate/Vitamin D3 1 each PO DAILY #30 tablet 05/17/17 07/24/17 Rx [Calcium 600-Vit D3 400 Tablet] Aspirin EC Tab 81 mg PO DAILY 07/24/17 07/24/17 History Gabapentin Cap/Tab [Neurontin 100 mg PO QAM 07/24/17 07/24/17 History Cap/Tab] Gabapentin [Gabapentin] 200 mg PO BEDTIME 07/24/17 07/24/17 History HYDROcodone/ACETAMIN 7.5-325 1 tablet PO DAILY 07/24/17 07/24/17 History [[place] 7.5-325] Methocarbamol [Methocarbamol] 1,000 mg PO BEDTIME 07/24/17 07/24/17 History Methocarbamol [Methocarbamol] 500 mg PO QAM 07/24/17 07/24/17 History Potassium Chloride [Potassium 8 meq PO DAILY 07/24/17 07/24/17 History Chloride] Tramadol HCl [Tramadol Tab] 50 mg PO Q6H PRN 07/24/17 07/24/17 History Triamterene/Hctz 37.5-25 Cap 1 capsule PO BID 07/24/17 07/24/17 History [Dyazide] Review of System - Review of System 12 point system: reviewed and no additional remarkable complaints except as stated - Review of System Constitutional: Absent: fever Respiratory: Absent: respiratory distress Cardiovascular: Absent: chest pain Skin: Absent: rash Neurological: Present: confusion, other (Right sided weakness and expressive aphasia) Medical,Surgical,& Family Hx - Medical History Cardio: History of: Hypertension HEENT: History of: Ear Problem ([place]) Endocrine: History of: Thyroid Disorder Gastrointestinal: History of: GERD - Surgical History Reproductive Surgeries: Surgical HX of;: Hysterectomy Orthopedic Surgeries: Surgical HX of;: Orthopedic Surgery, Total Knee Replacement - Family History Family History: Reports;: Family Cancer (mother), Family Heart Disease (Father) , Family Hypertension (Father) - Social History Smoking Status: Never smoker Frequency of Alcohol Use: None Type of Drug Use: None Exam Vital Signs: Vital Signs Temperature 97.8 F 07/24/17 11:06 Pulse Rate 62 07/24/17 11:06 Respiratory Rate 18 07/24/17 11:25 Blood Pressure 164/71 07/24/17 11:06 O2 Sat by Pulse Oximetry 100 07/24/17 11:06 - General General appearance: alert, in no apparent distress - Head Head exam: Present: atraumatic, normocephalic - Eye Eye exam: Present: normal appearance, PERRL, EOMI - ENT ENT exam: Present: normal exam - Neck Neck exam: Present: normal inspection - Chest Chest inspection: Present: normal inspection, symmetric chest wall rise - Respiratory Respiratory exam: Present: normal lung sounds bilaterally - Cardiovascular Cardiovascular exam: Present: regular rate, normal rhythm, normal heart sounds - Abdominal Exam Abdominal exam: Present: soft, normal bowel sounds. Absent: distention, tenderness - Extremities Exam Extremities exam: Present: other (Chronic pain to the right lower extremity due to old injury) - Back Exam Back exam: Present: normal inspection - Neurological Exam Neurological exam: Present: alert, other (Right sided weakness, expressive aphasia.). Absent: oriented X3 (confusion) - Psychiatric Psychiatric exam: Present: normal affect, normal mood - Skin Skin exam: Present: warm, dry, intact, normal color Course - Consultations Consultation #1: Hospitalist will admit patient Time: 13:17 Results - Labs CBC & BMP: 07/24/17 12:04 07/24/17 12:04 Lab Results: I have reviewed the patients labs Labs: Laboratory Tests 07/24/17 07/24/17 07/24/17 12:04 12:04 12:04 WBC 6.5 RBC 3.56 L Hgb 11.4 L Hct 32.9 L MCV 92.4 MCH 32 MCHC 34.7 RDW 13.2 Plt Count 272 MPV 9.5 L Neut % (Auto) 64.0 Lymph % (Auto) 19.6 L [place] % (Auto) 9.0 Eos % (Auto) 6.5 Baso % (Auto) 0.6 Neut # (Auto) 4.2 Lymph # (Auto) 1.3 L [place] # (Auto) 0.6 Eos # (Auto) 0.4 Baso # (Auto) 0.0 Immature Gran % 0.3 Nucleated RBC % 0.0 Immature Gran # 0.02 Nucleated RBCs # 0.00 Immature Plt Fraction 0.0 INR PT Patient/Control Mix Circ Anticoag PTT Urine Color Yellow Urine Appearance Clear Urine pH 5.0 Ur Specific [place] 1.011 Urine Protein Negative Urine Glucose (UA) Negative Urine Ketones Negative Urine Blood Negative Urine Nitrate Negative Urine Bilirubin Negative Urine Urobilinogen < 2.0 H Urine Leukocytes Negative Urine RBC 3 Urine WBC 1 Urine Mucus Occasional Ur Culture Indicated? Not indicated Urine Opiates Screen Positive H Ur Barbiturates Screen Negative Ur Phencyclidine Scrn Negative U Amphetamine/Methamph Negative U Benzodiazepines Scrn Positive H U Cocaine Metab Screen Negative U Cannabinoids Screen Negative 07/24/17 12:04 WBC RBC Hgb Hct MCV MCH MCHC RDW Plt Count MPV Neut % (Auto) Lymph % (Auto) [place] % (Auto) Eos % (Auto) Baso % (Auto) Neut # (Auto) Lymph # (Auto) [place] # (Auto) Eos # (Auto) Baso # (Auto) Immature Gran % Nucleated RBC % Immature Gran # Nucleated RBCs # Immature Plt Fraction INR 1.0 PT Patient/Control Mix 10.3 Circ Anticoag PTT 28.5 Urine Color Urine Appearance Urine pH Ur Specific [place] Urine Protein Urine Glucose (UA) Urine Ketones Urine Blood Urine Nitrate Urine Bilirubin Urine Urobilinogen Urine Leukocytes Urine RBC Urine WBC Urine Mucus Ur Culture Indicated? Urine Opiates Screen Ur Barbiturates Screen Ur Phencyclidine Scrn U Amphetamine/Methamph U Benzodiazepines Scrn U Cocaine Metab Screen U Cannabinoids Screen - Diagnostic Findings Procedure: Chest x-ray: report reviewed by me (No acute cardiopulmonary process compared to the previous study. Chronic lung changes. Previous compression fractures at the thoracolumbar junction. Previous left shoulder fracture.), CT: report reviewed by me (CT head/brain wo con: No acute intracranial process. No significant interval change from the comparison study.), X-ray: report reviewed by me (XR hip 2V w pelvis RT: No acute fracture. Osteoarthritis right hip. Old fracture inferior right pubic ramus. Subacute healing fracture midshaft right femur status post ORIF.) Disposition Clinical Impression: Cerebrovascular accident, Expressive aphasia, Right sided weakness, Hypomagnesemia Case discussed with: patient Disposition: Still a Patient Condition: Guarded Time of Disposition: 13:17 NIH Stroke Score - Stroke Score Initial Assessment Level of Consciousness: Alert Level of Consciousness Questions: Answers Both Correctly Level of Consciousness Commands: Obeys Both Correctly Best Gaze: Normal Visual [place]: No Visual Loss Facial Palsy: Normal Motor - Right Arm: No Drift Motor - Left Arm: No Drift Motor - Right Leg: No Drift Motor - Left Leg: No Drift Limb Ataxia: Absent Sensory ([place]): Partial Loss Best Language: Mild to Moderate Aphasia Dysarthria: Mild to Moderate Extinction / Inattention (Neglect): No Neglect NIH Stroke Score: 3
--- NOTE | 2017-07-24 12:05 | CT Report ---
History: Right hemiparesis Date: 07/24/2017 Study: CT head without contrast Comparison exam: May 12, [address] sections were obtained through the brain without contrast. The ventricles are midline in position without evidence of hydrocephalus. There is no mass or area of parenchymal hemorrhage. There is no gross CT evidence of acute cortical stroke. There is a minimal amount of ill-defined patchy low density in the periventricular white matter without mass effect compatible with changes of small vessel disease. There is mild to moderate distal carotid artery calcification. There is no extra-axial hematoma. The sinuses are generally clear. There is no obvious skull fracture. Impression: No acute intracranial process. No significant interval change from the comparison study This CT exam was performed using one or more the following dose reduction techniques: Automated exposure control, adjustment of the MA and/or KV according to patient size, or use of iterative reconstruction technique. PROCEDURE INTERPRETED AT [facility] DEPARTMENT OF RADIOLOGY Final Report Signed by: Dr. Emily Hanley
[2017-07-24 12:15] LABS: Apearance,Urine CLEAR (Clear); Bilirubin,Urine Negative (Negative); Blood, Urine Negative (Negative); Glucose,Urine (UA) Negative (Negative); Ketones,Urine Negative (Negative); Mucus,Urine Occasional /LPF (Occasional); Nitrite,Urine Negative (Negative); Protein,Urine Negative; RBC,Urine 3 /HPF (0-4); Urine Color Yellow (Yellow); Urine Specific Gravity 1.011 (1.001-1.035); Urine Urobilinogen < 2.0 EU/DL (0.2-1.0); WBC,Urine 1 /HPF (0-6)
[2017-07-24 12:20] LABS: Barbiturates Screen,Urine Negative (Negative); Benzodiazepines Screen,Urine Positive (Negative); Cannabinoid Screen,Urine Negative (Negative); Opiate Screen,Urine Positive (Negative); Phencyclidine Screen,Urine Negative (Negative)
--- NOTE | 2017-07-24 12:20 | XRay Report ---
History: Pain Date: 07/24/2017 Study: Right hip 2 views to include AP pelvis Comparison exam: Right femur x-ray May 12, 2017 The hips are well conjugated. There is no acute hip fracture. There is an old fracture of the inferior pubic ramus on the right. There is mild osteophyte formation with minimal joint space narrowing associated with either hip. Intramedullary baljit traverses a subacute healing midshaft fracture of the right femur. There is moderate callus formation present. Impression: No acute fracture. Osteoarthritis right hip. Old fracture inferior right pubic ramus. Subacute healing fracture midshaft right femur status post ORIF PROCEDURE INTERPRETED AT [facility] DEPARTMENT OF RADIOLOGY Final Report Signed by: Dr. Emily Hanley
[2017-07-24 12:21] LABS: Basophils % 0.6 % (0.0-0.8); Eosinophils # 0.4 10*3/uL (0.0-0.87); Eosinophils % 6.5 % (0.00-10.9); Hematocrit 32.9 VOL% (35.7-47.0); Hemoglobin 11.4 GM/DL (12.0-16.0); Immature Granulocytes % 0.3 %; Immature Granulocytes Absolute 0.02 #; Lymphocytes # 1.3 10*3/uL (1.4-4.0); Lymphocytes % 19.6 % (21.3-54.2); Mean Corpuscular HGB Conc 34.7 GM/DL (32-36); Mean Corpuscular Hemoglobin 32 PG (27-34); Mean Corpuscular Volume 92.4 FL (87-102); Mean Platelet Volume 9.5 FL (9.6-12.0); Monocytes # 0.6 10*3/uL (0.11-0.8); Neutrophils # 4.2 10*3/uL (1.4-7.4); Platelet Count 272 T/CUMM (130-400); Red Blood Count 3.56 MC/CUMM (3.8-5.5); Red Cell Distribution Width 13.2 % (9.3-17.3); White Blood Count 6.5 T/CUMM (4-12)
--- NOTE | 2017-07-24 12:23 | XRay Report ---
History: Cardiomegaly Date: 07/24/2017 Study: Chest x-ray AP portable Comparison exam: May 12, 2017 The cardiac silhouette is not enlarged. There is no mediastinal mass. There is moderate aortic arch calcification. The pulmonary vasculature is not engorged. There is no gross pleural effusion. There is no new or worsening infiltrate. There are some probable scattered emphysematous changes. There are old rib fractures bilaterally. There is an old fracture of the surgical neck of the left humerus with nonbony union as before. There has been previous right shoulder replacement. Osteopenia and mild to moderate thoracic spondylosis are again noted. There are previous compression fractures at the thoracolumbar junction as before. Impression: No acute cardiopulmonary process compared to the previous study. Chronic lung changes. Previous compression fractures at the thoracolumbar junction. Previous left shoulder fracture PROCEDURE INTERPRETED AT [facility] DEPARTMENT OF RADIOLOGY Final Report Signed by: Dr. Emily Hanley
[2017-07-24 12:28] LABS: PT Patient Result 10.3 SECS; Partial Thromboplastin Time 28.5 SECS (0-40)
[2017-07-24] MEDS ORDERED: MAGNESIUM SULF RIDER 2 GM in PREMIX 1 EACH IV STA ×2 (12:55→14:46)
[2017-07-24 12:57] LABS: Alanine Aminotransferase 22 U/L (13-56); Albumin 3.3 G/DL (3.4-5.0); Alkaline Phosphatase 69 U/L (45-117); Aspartate Amino Transferase 18 U/L (0-37); Blood Urea Nitrogen 18 MG/DL (7-18); Calcium 8.3 MG/DL (8.5-10.1); Glucose 83 MG/DL (74-106); Potassium 4.6 MMOL/L (3.5-5.1); Sodium 136 MMOL/L (136-145); Total Protein 5.7 G/DL (6.4-8.3); Troponin I Only < 0.015 NG/ML (0.00-0.045)
[2017-07-24] MEDS ORDERED: MAGNESIUM SULF RIDER 50 ML IV ONE (12:57)
--- NOTE | 2017-07-24 13:39 | EKG Report ---
Stationary ECG Study [facility] ER Test Date: 07/24/2017 11:05:21 AM Pat Name: PERI DUARTE Department: Room: Gender: F [employer] Service Engineer: : [id number] Requested by: Hans Ivey Order Number: [id number] Reading MD: EVELINA CHRISTOPHER Intervals [place] Rate: 68 P: 68 IA: 279 QRS: 37 QRSD: 89 T: 62 QT: 373 QTc: 391 Interpretive Statements SINUS RHYTHM WITH PROLONGED IA INTERVAL Electronically Signed On 07-28-17 06:32:13 CDT by EVELINA CHRISTOPHER [email or web address]
--- NOTE | 2017-07-24 14:05 | Hospitalist History & Physical ---
<Megan Parr - Last Filed: 07/24/17 14:22> Assessment and Plan - Time spent with patient Time spent with patient: Greater than 30 minutes (1) Cerebrovascular accident Status: Acute Assessment and plan: Admit 07/24/17 to monitored bed OT,PT, swallow eval Aspirin 325mg daily MRI, MRA Carotid Dopplers Echo Consult Neurology - Dr Magallanes Lipids, A1c, repeat a.m. labs Will discuss with Dr Salter for further recommendations with care. Current Visit: Yes (2) Expressive aphasia Status: Acute Current Visit: Yes (3) Weakness of right side of body Status: Acute Current Visit: Yes History of Present Illness Chief complaint: confusion, right sided weakness History of present illness: Ms. Nails is a 81 year old white female w/PMHx of HTN, thyroid disorder, HARD of hearing, GERD and recent (8 weeks ago) right femur fracture with repair , presented to ED for further evaluation of confusion that started at 8 p.m. with some right sided weakness, and expressive aphasia. She reports feeling unable to think "clearly" just feeling sluggish and "not being able to speak well." and a headache this morning. She reports right side feels weaker than the left side. She denies fever, chills, shortness of breath or cough. In April she was in for a fall and right femur fracture with repair and has therapy that comes to her home two times a week. She lives at home alone but has around the clock help. She uses a walker for ambulation. She denies smoking, alcohol or drug use. She takes Flu vaccine yearly. PCP: Dr Bianchi After discussion with Dr Garay in the ED and Dr Salter with Hospital Medicine, it was agreed to admit patient for further evaluation. Home medications to be reviewed and reconciliation to follow. Home Medications Medication Instructions Recorded Confirmed Type Acyclovir [Acyclovir Cap/Tab] 800 mg PO TID 05/12/17 07/24/17 History Atenolol 50 mg PO BID 05/12/17 07/24/17 History Clorazepate Dipotassium 7.5 - 15 mg PO BEDTIME PRN 05/12/17 07/24/17 History Thyroid,Pork [Westhroid] 32.5 mg PO DAILY 05/12/17 07/24/17 History cycloSPORINE OPH EMUL [Restasis] 1 drop BOTH EYES BID 05/12/17 07/24/17 History Calcium Carbonate/Vitamin D3 1 each PO DAILY #30 tablet 05/17/17 07/24/17 Rx [Calcium 600-Vit D3 400 Tablet] Aspirin EC Tab 81 mg PO DAILY 07/24/17 07/24/17 History Gabapentin Cap/Tab [Neurontin 100 mg PO QAM 07/24/17 07/24/17 History Cap/Tab] Gabapentin [Gabapentin] 200 mg PO BEDTIME 07/24/17 07/24/17 History HYDROcodone/ACETAMIN 7.5-325 1 tablet PO DAILY 07/24/17 07/24/17 History [[place] 7.5-325] Methocarbamol [Methocarbamol] 1,000 mg PO BEDTIME 07/24/17 07/24/17 History Methocarbamol [Methocarbamol] 500 mg PO QAM 07/24/17 07/24/17 History Potassium Chloride [Potassium 8 meq PO DAILY 07/24/17 07/24/17 History Chloride] Tramadol HCl [Tramadol Tab] 50 mg PO Q6H PRN 07/24/17 07/24/17 History Triamterene/Hctz 37.5-25 Cap 1 capsule PO BID 07/24/17 07/24/17 History [Dyazide] Allergies Allergy/AdvReac Type Severity Reaction Status Date / Time Penicillins Allergy Intermediate HIVES Verified 05/13/17 09:32 Latex, Natural Rubber Allergy Unknown/Unable Verified 07/24/17 12:17 to obtain Medical,Surgical,& Family Hx - Medical History Cardio: History of: Hypertension Neurology: History of: Cerebrovascular Accident (per daugther statement) HEENT: History of: Ear Problem ([place]) Endocrine: History of: Thyroid Disorder Gastrointestinal: History of: GERD - Surgical History Reproductive Surgeries: Surgical HX of;: Hysterectomy Orthopedic Surgeries: Surgical HX of;: Orthopedic Surgery, Total Knee Replacement - Family History Family History: Reports;: Family Cancer (mother), Family Heart Disease (Father) , Family Hypertension (Father) - Social History Smoking Status: Never smoker Frequency of Alcohol Use: None Type of Drug Use: None Marital Status: Lives With:: Alone Functional capacity: uses cane/walker 12 point system: reviewed and no additional remarkable complaints except as stated - Constitutional Constitutional: Present: headache(s). Absent: chills, fever(s) - Cardiovascular Cardiovascular: Absent: dyspnea, dyspnea on exertion - Respiratory Respiratory: Absent: dyspnea - Neurological Neurological: Present: abnormal speech, confusion, headache(s). Absent: frequent falls Exam - Constitutional Vitals: Period Temp Pulse Resp BP Sys/[place] Pulse Ox Last 24 Hr 97.8 F-97.8 F 62-62 18-18 164-164/71-71 100 General appearance: normal weight, no acute distress, other (able to answer all questions appropriately but she has some difficulty getting her response to questions out.) - Head Head exam: Present: normal inspection, normocephalic - Eye Eye exam: Present: EOMI Pupils: Present: ARMAND - ENT ENT exam: Present: other (Very Hard to Hear) - Neck Neck exam: Present: normal inspection. Absent: thyromegaly - Respiratory Respiratory exam: Present: clear to auscultation bilaterally. Absent: rales, rhonchi, stridor, wheezes - Cardiovascular Cardiovascular exam: Present: regular rate and rhythm - GI/Abdominal GI/Abdominal exam: Present: normal bowel sounds, soft. Absent: rebound - Extremities Exam Extremities exam: Present: normal inspection, full ROM, other (right side slightly more weak than left side). Absent: edema - Neurological Exam Neurological exam: Present: alert, oriented X3, CN II-XII intact - Psychiatric Psychiatric exam: Present: normal affect, normal mood. Absent: agitated, anxious - Skin Skin exam: Present: normal color, warm, dry Results - Labs CBC & BMP: 07/24/17 12:04 07/24/17 12:04 Lab Results: I have reviewed the past 24 hour labs - Diagnostic Findings Procedure: Chest x-ray: report reviewed by me (nothing acute), CT: report reviewed by me (head: nothing acute), X-ray: report reviewed by me (right hip: no acute fracture) <Liz Salter - Last Filed: 07/24/17 15:35> Assessment and Plan (1) Cerebrovascular accident Status: Acute Assessment and plan: Patient seen and examined. Agree with above recommendations. Patient does not take an aspirin every day dose as needed. So I would continue aspirin daily. Current Visit: Yes (2) Expressive aphasia Status: Acute Assessment and plan: MRI of brain Current Visit: Yes (3) Hypomagnesemia Status: Acute Assessment and plan: mag 2 grams IV in er and another 2 grams IV on floor, mag in am Current Visit: Yes (4) Hypertension Status: Acute Assessment and plan: cont atenolol Current Visit: No History of Present Illness History of present illness: Ms. Nails is a 81 year old female seen and examined. Had difficulty getting her words out. Feels weaker on right side but but this is only noted in the right lower extremity. She definitely is still having difficulty articulating her words. She is recently underwent an intramedullary nail of her right femur but is able to have an MRI as she is already had one in May. Her Yissel Moffett in [place] would like to speak to us [phone] - EENT Eyes: Absent: blurry vision, diplopia Ears: Absent: decreased hearing, ear discharge Nose, mouth and throat: Present: headache(s). Absent: sore throat Exam - Constitutional Vitals: Period Temp Pulse Resp BP Sys/[place] Pulse Ox Last 24 Hr 97.8 F-97.8 F 62-62 18-18 164-164/71-71 100 - Eye Eye exam: Absent: scleral icterus Pupils: Present: normal accommodation - ENT ENT exam: Present: normal exam, normal external ear exam, other - Neck Neck exam: Absent: lymphadenopathy - Cardiovascular Cardiovascular exam: Absent: systolic murmur - Extremities Exam Extremities exam: Present: normal capillary refill - Neurological Exam Neurological exam: Present: motor sensory deficit (RLL weakness dysarthria ), reflexes normal, other Results - Labs CBC & BMP: 07/24/17 12:04 07/24/17 12:04
[2017-07-24] MEDS ORDERED: LABETALOL 20 MG/4 ML SYRINGE IV PRN (14:16)
--- NOTE | 2017-07-24 15:02 | Ultrasound Report ---
Exam:US carotid duplex BI Date:07/24/2017 2:20 PM Indication: Right-sided weakness, confusion Color Doppler, wave form analysis, and grayscale analysis of the cervical carotid arteries was performed. There is minimal partially calcified plaque in the left carotid bulb. Waveform analysis shows proper directional flow of the cervical carotid arteries. There is antegrade flow in either vertebral artery. There is no abnormal increased peak systolic velocity within the visualized common or internal carotid arteries bilaterally. The IC to CC ratios remain normal bilaterally. Impression: There is 16-49% diameter reduction narrowing of either internal carotid artery using indirect NASCET criteria. No hemodynamically significant stenosis is seen Right Side Flow velocities centimeters per second Common carotid artery:63.8 Proximal ICA:58.5 Distal ICA:105.5 External carotid artery:58.5 Vertebral artery:54.6 ICA/CCA ratio:1.7 Measurements in millimeters Distal ICA: 5.0 Left SIde Flow velocities centimeters per second Common carotid artery 66.4 Proximal ICA:65.1 Distal ICA:112.0 External carotid artery:63.8 Vertebral artery:46.8 ICA/CCA ratio:1.7 Measurements in millimeters Distal ICA: 4.7 Today studies were performed utilizing indirect NASCET criteria PROCEDURE INTERPRETED AT [facility] DEPARTMENT OF RADIOLOGY Final Report Signed by: Dr. Emily Hanley
--- NOTE | 2017-07-24 17:20 | Magnetic Resonance Report ---
Indication: Right-sided weakness Comparison: Carotid ultrasound 07/24/2017 Technique: MRA of the neck was performed prior to and following administration of intravenous gadolinium. Multiplanar, multisequence MR imaging of the brain was also performed without administration of intravenous gadolinium. Findings: The aortic arch and proximal great vessels are unremarkable. The right common carotid artery, right internal carotid artery, and right external carotid artery are unremarkable. No aneurysm, occlusion, or significant flow-limiting lesion. There is a possible fenestration at the distal left ICA terminus versus a 5 mm aneurysm, which is not well visualized. Otherwise, the left common carotid artery, left internal carotid artery, and left external carotid artery are unremarkable. No aneurysm, occlusion, or significant flow-limiting lesion. Bilateral vertebral arteries also appear widely patent throughout their course in the cervical spine. External carotid artery and branches appear widely patent. Non-MRA FINDINGS: There is no evidence of restricted diffusion. There is no evidence of acute intracranial hemorrhage, mass, or infarction. Ventricular system demonstrates no evidence of acute pathology. Scattered T2/FLAIR signal hyperintensities are noted bilaterally within the periventricular white matter as well as the bilateral centrum semiovale. These are most compatible with microvascular ischemic changes. The basal cisterns appear patent. The arterial flow voids appear intact. The posterior fossa as well as cerebellum demonstrate no evidence of acute pathology. The orbits and globes demonstrate no evidence of acute pathology. The paranasal sinuses and mastoid air cells demonstrate no evidence of significant mucoperiosteal thickening. The calvarium as well as the soft tissues overlying the calvarium demonstrate no evidence of acute pathology. IMPRESSION: No significant stenosis within either internal carotid artery. Possible fenestration of the distal left internal carotid artery versus small ICA terminus aneurysm is not completely evaluated. Consider CT angiography of the head for further evaluation when clinically feasible. No evidence of acute restricted diffusion. No evidence of intracranial hemorrhage. Multifocal T2/FLAIR signal changes within the periventricular white matter are nonspecific but favored to represent sequela of chronic microvascular ischemia. PROCEDURE INTERPRETED AT [facility] DEPARTMENT OF RADIOLOGY Final Report Signed by: Leeroy Paredes
[2017-07-24] MEDS ORDERED: traMADol 50 MG TABLET PO PRN (18:26)
[2017-07-24] MEDS: ACYCLOVIR 800 MG TABLET PO SCH ×2 (18:41→20:30)
--- NOTE | 2017-07-24 20:27 | ECHO Report ---
Liz Naisl Exam Date: 07/24/2017 14:43 Referring Physician: Technologist: Kathy Mario LRLISANDRO Age: 81 Ht (in): 65 Wt (lb): 130 Gender: F Exam Location: [facility] Echo Indications: hypomagnesemia, weakness, expressive aphasia, CVA BP: 164 / 71 HR: 62 Rhythm: Sinus Technical Quality: IMPRESSIONS 1. Left ventricle is normal size and systolic function with ejection fraction 5560%. 2. Other cardiac chambers are normal size. 3. Mild aortic valve sclerosing but no evidence of stenosis or insufficiency. 4. Minimally thickened mitral valve. Trace to mild mitral valve regurgitation. 5. No evidence of elevated right-sided pressures. MEASUREMENTS (Male / Female) Normal Values 2D ECHO LV Diastolic Diameter PLAX 4.0 cm 4.2 - 5.9 / 3.9 - 5.3 cm LV Systolic Diameter PLAX 1.8 cm LV Fractional Shortening PLAX 54.4 % IVS Diastolic Thickness 1.0 cm 0.6 - 1.0 / 0.6 - 0.9 cm LVPW Diastolic Thickness 0.9 cm 0.6 - 1.0 / 0.6 - 0.9 cm Aortic Root Diameter 2.2 cm LA Systolic Diameter LX 2.9 cm 3.0 - 4.0 / 2.7 - 3.8 cm FINDINGS Left Ventricle Normal left ventricular cavity size. Left ventricular ejection fraction is estimated at 55-60 %. No segmental wall motion normality is noted. No gross diastolic dysfunction is noted. Right Ventricle Normal right ventricular size. Right Atrium Normal right atrial size. Left Atrium Normal left atrial size. Mitral Valve Mildly thickened mitral valve with trace mitral regurgitation. Aortic Valve Mild aortic valve sclerosis without stenosis or regurgitation. Tricuspid Valve Morphologically normal tricuspid valve. Trace tricuspid valve regurgitation. Tricuspid regurgitation velocities suggest a PAP of 30 mmHg + RAP. Pulmonic Valve Morphologically normal pulmonic valve. Pericardium No pericardial effusion. Aorta Normal size aortic root and proximal ascending aorta. Ritesh Mccauley MD (Electronically Signed) Final Date: 24 July 2017 20:26
[2017-07-24] MEDS: ATENOLOL 50 MG TABLET PO SCH (20:30)
[2017-07-24] MEDS: cycloSPORINE OPH EMUL 1 VIAL BOTH EYES SCH (20:31)
[2017-07-24] MEDS ORDERED: ZALEPLON 5 MG CAPSULE PO PRN (20:57)
[2017-07-24] MEDS ORDERED: METHOCARBAMOL 500 MG TABLET PO SCH (21:00)
[2017-07-24] MEDS ORDERED: GABAPENTIN 100 MG CAPSULE PO SCH (21:00)
[2017-07-25 07:24] LABS: Basophils % 0.8 % (0.0-0.8); Eosinophils # 0.4 10*3/uL (0.0-0.87); Eosinophils % 9.1 % (0.00-10.9); Hematocrit 34.3 VOL% (35.7-47.0); Hemoglobin 11.8 GM/DL (12.0-16.0); Immature Granulocytes % 0.2 %; Immature Granulocytes Absolute 0.01 #; Lymphocytes # 1.3 10*3/uL (1.4-4.0); Lymphocytes % 26.4 % (21.3-54.2); Mean Corpuscular HGB Conc 34.4 GM/DL (32-36); Mean Corpuscular Hemoglobin 31 PG (27-34); Mean Platelet Volume 9.3 FL (9.6-12.0); Monocytes # 0.5 10*3/uL (0.11-0.8); Monocytes % 10.3 % (1.7-12.7); Neutrophils # 2.5 10*3/uL (1.4-7.4); Neutrophils % 53.2 % (38.7-73.9); Platelet Count 307 T/CUMM (130-400); Red Blood Count 3.77 MC/CUMM (3.8-5.5); Red Cell Distribution Width 13.2 % (9.3-17.3); White Blood Count 4.7 T/CUMM (4-12)
[2017-07-25 07:53] LABS: Calcium 8.9 MG/DL (8.5-10.1); Potassium 4.1 MMOL/L (3.5-5.1); Risk Ratio 5.09
[2017-07-25 08:00] LABS: Free T4 (Free Thyroxine) 0.84 NG/DL (0.76-1.46); Thyroid Stimulating Hormone 0.961 uIU/ml (0.358-3.74)
[2017-07-25] MEDS: ACYCLOVIR 800 MG TABLET PO SCH ×2 (08:38→16:07)
[2017-07-25] MEDS: ATENOLOL 50 MG TABLET PO SCH (08:39)
[2017-07-25] MEDS: cycloSPORINE OPH EMUL 1 VIAL BOTH EYES SCH (08:48)
[2017-07-25] MEDS ORDERED: THYROID 60 MG TABLET PO SCH (09:00)
[2017-07-25] MEDS ORDERED: ASPIRIN EC 81 MG TABLET PO SCH (09:00)
[2017-07-25] MEDS ORDERED: CALCIUM (CARBONATE)/VITAMIN D 600 MG-400 UNIT TABLET PO SCH (09:00)
[2017-07-25] MEDS ORDERED: METHOCARBAMOL 500 MG TABLET PO SCH (09:00)
[2017-07-25] MEDS ORDERED: GABAPENTIN 100 MG CAPSULE PO SCH (09:00)
[2017-07-25] MEDS ORDERED: ASPIRIN 325 MG TABLET PO SCH (09:00)
[2017-07-25] MEDS ORDERED: ATORVASTATIN 20 MG TABLET PO SCH (10:30)
[2017-07-25 11:11] VITALS: BP 140/63
--- NOTE | 2017-07-25 11:57 | Discharge Summary ---
<[facility] - Last Filed: 07/25/17 13:23> Hospital Course - Hospital Course Hospital Course: Ms. Nails is a 81-year-old female who presented to the emergency ED on yesterday for further evaluation of confusion that started at 8 PM the previous night. Patient also has some associated right-sided weakness and expressive aphasia on admission. She was admitted to the hospital medicine service to a monitored bed for complete stroke workup including MRI, carotid Dopplers, echocardiogram, OT and PT evaluation with bedside swallow study and consultation by neurology. CT of the head on admission revealed no acute intracranial process with no significant interval change from previous studies. Brain MRI further confirmed no significant stenosis within either internal carotid artery. Bilaterally ultrasound of the carotid arteries revealed no hemodynamically significant stenosis. Echocardiogram revealed EF of 55-60% with mild aortic valve sclerosing, minimally thickened mitral valve with trace to mild mitral valve regurgitation, and no evidence of elevated right-sided pressures. Patient remained stable this morning. CTA of head and neck showed No measurable stenosis of either ICA origin. 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 It is peripherally calcified but otherwise patent. disease of the aortic arch.We will get a Vascular consult for recommendations and await Neuro's input before discharging.She was started on Lipitor for her dyslipidemia. Her aspirin was increased to 325mg daily.her symptoms have completely resolved. She still has her right foot drop which has been evaluated as outpatient with an MRI of the lumbar spine. She will follow with pain clinic. - Time spent with patient Time with patient DS: Greater than 30 minutes Discharge Plan - Discharge Data Disposition: Disch To Home/Self Care - Discharge Medications New Aspirin Tab 325 mg PO DAILY #30 tablet Atorvastatin [Lipitor] 20 mg PO DAILY #30 tablet traMADol TAB [Ultram] 50 mg PO Q6H PRN #20 tablet PRN Reason: Pain Continue cycloSPORINE OPH EMUL [Restasis] 1 drop BOTH EYES BEDTIME Acyclovir [Acyclovir Cap/Tab] 800 mg PO TID Atenolol 50 mg PO BID Methocarbamol 1,000 mg PO BEDTIME Triamterene/Hctz 37.5-25 Cap [Dyazide] 1 capsule PO BID Gabapentin 200 mg PO BEDTIME Thyroid,Pork [Westhroid] 32.5 mg PO DAILY Calcium Carbonate/Vitamin D3 [Calcium 600-Vit D3 400 Tablet] 1 each PO DAILY #30 tablet Methocarbamol 500 mg PO QAM Gabapentin Cap/Tab [Neurontin Cap/Tab] 100 mg PO QAM Discontinued Clorazepate Dipotassium 7.5 - 15 mg PO BEDTIME PRN PRN Reason: Anxiety Tramadol HCl [Tramadol Tab] 50 mg PO Q6H PRN PRN Reason: Pain Potassium Chloride [Potassium Chloride] 8 meq PO DAILY Aspirin EC Tab 81 mg PO DAILY HYDROcodone/ACETAMIN 7.5-325 [[place] 7.5-325] 1 tablet PO DAILY - Follow Up or Referral - Forms/Instructions Exam - Constitutional Vitals: Period Temp Pulse Resp BP Sys/[place] Pulse Ox Last 24 Hr 94.3 F-97.7 F 60-76 16-20 117-174/57-72 93-97 Discharge Results Labs on day of discharge: Labs from last 24 hours 07/25/17 07/25/17 07/25/17 07:13 07:13 07:13 WBC RBC Hgb Hct MCV MCH MCHC RDW Plt Count MPV Neut % (Auto) Lymph % (Auto) [place] % (Auto) Eos % (Auto) Baso % (Auto) Neut # (Auto) Lymph # (Auto) [place] # (Auto) Eos # (Auto) Baso # (Auto) Immature Gran % Nucleated RBC % Immature Gran # Nucleated RBCs # Immature Plt Fraction Circ Anticoag PTT Sodium 136 Potassium 4.1 Chloride 102 Carbon Dioxide 26 Anion Gap 12.1 BUN 13 Creatinine 0.80 GFR Calculation 69 BUN/Creatinine Ratio 16.00 Glucose 92 Hemoglobin A1c 5.8 Calculated Osmolality 271.0 L Calcium 8.9 Troponin I Triglycerides 185 H Cholesterol 239 H LDL Cholesterol 145.0 VLDL Cholesterol 37.0 HDL Cholesterol 47 Heart Disease Risk Ratio 5.09 Free T4 0.84 TSH 3rd Generation 0.961 07/25/17 07/25/17 07/24/17 07:13 07:13 22:00 WBC 4.7 RBC 3.77 L Hgb 11.8 L Hct 34.3 L MCV 91.0 MCH 31 MCHC 34.4 RDW 13.2 Plt Count 307 MPV 9.3 L Neut % (Auto) 53.2 Lymph % (Auto) 26.4 [place] % (Auto) 10.3 Eos % (Auto) 9.1 Baso % (Auto) 0.8 Neut # (Auto) 2.5 Lymph # (Auto) 1.3 L [place] # (Auto) 0.5 Eos # (Auto) 0.4 Baso # (Auto) 0.0 Immature Gran % 0.2 Nucleated RBC % 0.0 Immature Gran # 0.01 Nucleated RBCs # 0.00 Immature Plt Fraction 0.0 Circ Anticoag PTT 29.4 Sodium Potassium Chloride Carbon Dioxide Anion Gap BUN Creatinine GFR Calculation BUN/Creatinine Ratio Glucose Hemoglobin A1c Calculated Osmolality Calcium Troponin I < 0.015 Triglycerides Cholesterol LDL Cholesterol VLDL Cholesterol HDL Cholesterol Heart Disease Risk Ratio Free T4 TSH 3rd Generation 07/24/17 07/24/17 18:03 15:49 WBC RBC Hgb Hct MCV MCH MCHC RDW Plt Count MPV Neut % (Auto) Lymph % (Auto) [place] % (Auto) Eos % (Auto) Baso % (Auto) Neut # (Auto) Lymph # (Auto) [place] # (Auto) Eos # (Auto) Baso # (Auto) Immature Gran % Nucleated RBC % Immature Gran # Nucleated RBCs # Immature Plt Fraction Circ Anticoag PTT Sodium Potassium Chloride Carbon Dioxide Anion Gap BUN Creatinine GFR Calculation BUN/Creatinine Ratio Glucose Hemoglobin A1c Calculated Osmolality Calcium Troponin I < 0.015 < 0.015 Triglycerides Cholesterol LDL Cholesterol VLDL Cholesterol HDL Cholesterol Heart Disease Risk Ratio Free T4 TSH 3rd Generation DS: Provider Date of admission: 07/24/17 13:22 Primary care physician: Patrick Bianchi DO Attending physician on admission: Liz Salter MD Consults: 07/24/17 14:17 Consult to Case Mgmt/Social Srvs [CONS] Routine Reason for Case Mgmt/Social Srvs: Discharge Planning Consult to Occupational Therapy [CONS] Routine Reason for Occupational Therapy: Evaluate and Treat Consult Comment: Stroke Consult to Physical Therapy [CONS] Routine Reason for Physical Therapy: Evaluate and Treat Consult Comment: stroke 07/24/17 14:22 Consult to Physician [CONS] Routine Comment: Consulting Provider: Patel Magallanes Consulting Provider Notified: Yes When should Consulting Provider be notified: Now Consult to Specialist Group: Neurology When should Consulting Provider be notified: Now Person Notified: ANA Date Notified: 07/24/17 Time Notified: 15:21 Discharging clinician: Champ HILTON Expected date of discharge: 07/25/17 <Dianne [facility] - Last Filed: 07/25/17 13:51> Hospital Course - Time spent with patient Time with patient DS: Greater than 30 minutes (Time spent greater than 1hr) Diagnosis - Discharge Diagnosis (1) TIA (transient ischemic attack) Status: Acute (2) Hypertension Status: Acute (3) Right foot drop Status: Acute (4) Hyperlipemia Status: Acute Discharge Plan - Discharge Data Condition at Discharge: Stable Discharge Diet: advance to your usual diet Activity: resume usual activities as tolerated - Forms/Instructions Additional Discharge Instructions: Follow with Neuro, vascular as scheduled. Follow with PCP in 1week
--- NOTE | 2017-07-25 12:17 | CT Report ---
CT angio head, CT angio neck Indication: TIA. CT ANGIOGRAM CAROTID ARTERIES DLP: 112 mGy*cm. One or more of the following dose reduction techniques was used: Automated exposure control, adjustment of the mA and/or kV according the patient size, or use of iterative reconstruction techniques. Technique: Axial thin cuts CT images were obtained from the aortic arch through the skull base during the arterial phase of contrast injection. 3-D vascular MIPs reconstructions and multiplanar reformats were evaluated. Omnipaque 350, 80 cc given. Comparison: None. Findings: Severity of stenosis based on NASCET criteria. Reference downstream ICA diameters are 4.6 mm on the right and 4.2 mm on the left. There is no stenosis of either ICA origin and no atheromatous disease present at either carotid bifurcation. Both internal carotid arteries are widely patent through the skull base. The vertebral arteries are bilaterally symmetric and patent. Both common carotid arteries are widely patent. The left vertebral artery originates directly off the aortic arch, normal variant anatomy. Mild atheromatous disease the aorta is present without dissection or aneurysm shown. No superior mediastinal or cervical chain lymphadenopathy. Emphysematous changes of the pulmonary apices noted. They are otherwise clear. Degenerative changes cervical spine noted and are relatively severe with disc space narrowing and progressive anterolisthesis of C4 on 5, C5 on 6 and C6 on 7. This is chronic. Bilateral C5-6 and C6-7 foraminal stenosis noted. Impression: 1. No measurable stenosis of either ICA origin. 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 2. Normal variant anatomy with the left vertebral artery originating directly off the aorta. 3. Severe degenerative changes cervical spine. CT ANGIOGRAM [place] DLP: 112 mGy*cm. One or more of the following dose reduction techniques was used: Automated exposure control, adjustment of the mA and/or kV according the patient size, or use of iterative reconstruction techniques. Technique: Axial thin cut CT images were obtained from the skull base to the vertex during arterial phase of contrast injection. 3-D vascular MIPs reconstructions and multiplanar reformats were evaluated. Omnipaque 350, 80 cc given. Comparison: None. Findings: Vertebral arteries are tortuous above the foramen magnum but they terminate in the basilar artery. Basilar artery is normal in size without stenosis. No basilar tip aneurysm. There is calcified atheromatous disease involving supraclinoid bilateral ICA which results in less than 40% diameter stenosis on the right. On the left, severity of stenosis is worse, estimated at 75%. There is a 6 x 4 mm aneurysm extending off the anterior aspect of the left carotid terminus at the origin of the MCA. It is partially calcified but otherwise patent. No additional aneurysmal disease shown. No flow cut off. Impression: 1. 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 It is peripherally calcified but otherwise patent. 2. 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 On the right, this results in less than 40% diameter narrowing, but on left results in estimated 75% diameter narrowing. PROCEDURE INTERPRETED AT [facility] DEPARTMENT OF RADIOLOGY Final Report Signed by: Ritesh Simms M.D.
--- NOTE | 2017-07-25 15:17 | Neurology Consult Note ---
History of Present Illness History of present illness: 81 years old right-handed white lady with past medical history significant for hypertension, thyroid disorder, GERD, history of right femur fracture status post surgery and recently been discharged from [facility] admitted to the hospital with some speech difficulties. Family and caregiver reported that she knew what she wanted to say but just could not get words out. She was quite confused. She reported feeling unable to think clearly, just feeling sluggish and not being able to speak well and a headache yesterday morning. When she woke up this morning all of her symptoms have resolved. She denies any fever chills shortness of breath or cough. MRI of the brain reveals no acute abnormalities. 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 She uses a walker for ambulation. Home Medications Medication Instructions Recorded Confirmed Type Acyclovir [Acyclovir Cap/Tab] 800 mg PO TID 05/12/17 07/24/17 History Atenolol 50 mg PO BID 05/12/17 07/24/17 History Thyroid,Pork [Westhroid] 32.5 mg PO DAILY 05/12/17 07/24/17 History cycloSPORINE OPH EMUL [Restasis] 1 drop BOTH EYES BEDTIME 05/12/17 07/24/17 History Calcium Carbonate/Vitamin D3 1 each PO DAILY #30 tablet 05/17/17 07/24/17 Rx [Calcium 600-Vit D3 400 Tablet] Gabapentin 200 mg PO BEDTIME 07/24/17 07/24/17 History Gabapentin Cap/Tab [Neurontin 100 mg PO QAM 07/24/17 07/24/17 History Cap/Tab] Methocarbamol 1,000 mg PO BEDTIME 07/24/17 07/24/17 History Methocarbamol 500 mg PO QAM 07/24/17 07/24/17 History Triamterene/Hctz 37.5-25 Cap 1 capsule PO BID 07/24/17 07/24/17 History [Dyazide] Aspirin Tab 325 mg PO DAILY #30 tablet 07/25/17 Rx Atorvastatin [Lipitor] 20 mg PO DAILY #30 tablet 07/25/17 Rx Potassium Chloride Cap/Tab [[place]] 10 meq PO DAILY #30 tablet 07/25/17 Rx traMADol TAB [Ultram] 50 mg PO Q6H PRN #20 tablet 07/25/17 Rx Allergies Allergy/AdvReac Type Severity Reaction Status Date / Time Penicillins Allergy Intermediate HIVES Verified 05/13/17 09:32 Latex, Natural Rubber Allergy Unknown/Unable Verified 07/24/17 12:17 to obtain 12 point system: reviewed and no additional remarkable complaints except as stated Medical,Surgical,& Family Hx - Medical History Cardio: History of: Hypertension Neurology: History of: Cerebrovascular Accident (per daugther statement) HEENT: History of: Ear Problem ([id number]) Endocrine: History of: Thyroid Disorder Gastrointestinal: History of: GERD - Surgical History Reproductive Surgeries: Surgical HX of;: Hysterectomy Orthopedic Surgeries: Surgical HX of;: Orthopedic Surgery, Total Knee Replacement - Family History Family History: Reports;: Family Cancer (mother), Family Heart Disease (Father) , Family Hypertension (Father) - Social History Smoking Status: Never smoker Frequency of Alcohol Use: None Type of Drug Use: None Exam - Constitutional Vitals: Period Temp Pulse Resp BP Sys/[place] Pulse Ox Last 24 Hr 94.3 F-97.7 F 60-76 16-20 117-174/57-72 93-97 Exam: GENERAL: Patient is in no acute distress. NECK: Neck is supple. There is no JVD. No carotid bruits present. No thyroid masses. CVS: First and second heart sounds are normal. There is no S3 present. Regular rate and rhythm. RESPIRATORY: Lungs are clear to auscultation without any rales or rhonchi. ABDOMEN: Soft and non-tender. Bowel sounds are present. There is no hepatosplenomegaly. EXT: There is no palpable edema. Peripheral pulses are present. Skin: No rashes Central Nervous system: General: Alert, awake and Oriented x 3 Speech: Fluent Comprehension: Intact and normal Facial expressions: Normal Cranial Nerves: CN1/Olfactory: Normal CN II/ Optic: Normal, Visual [place] unreliable CN III, and : ARMAND & EOMI CN V: Normal & intact CN VII: face is symmetric CNVIII: Normal CN XI/X/XI/XII: Intact and Normal Motor: Bulk and Tone is normal. Strength in the right 3-4/5 Strength in the left 3-4/5 Sensory: Grossly intact for all the modalities of PP, LT and temp sense Reflexes: 1+ and symmetrical Cerebellar function: Normal finger to nose and heel to jesus testing. Toes: Equivocal Gait: Walking with a hyper walker Results - Labs CBC & BMP: 07/25/17 07:13 07/25/17 07:13 Assessment and Plan (1) TIA (transient ischemic attack) Status: Acute Assessment and plan: Continue aspirin a day Add Plavix 75 mg daily Okay to go home from neuro standpoint Needs interventional radiology consultation as an outpatient in [place] further evaluation of aneurysm Follow-up with me on as needed basis Thank you for the consult Current Visit: Yes
[2017-07-26] MEDS ORDERED: CLOPIDOGREL 75 MG TABLET PO SCH (09:00)
== END 2017-07-25 17:19 | disposition home health service (06) | DRG 69 ==
LOC: EDUNIT# → EDBD → N.ED 10:57 → SUATTDRO 13:22 → N.EDINP 13:22 → N.4E 15:03
PROVIDERS: ADMIT Internal Medicine; ATTEND Internal Medicine

== ENCOUNTER 2019-12-14 21:06 | Inpatient (IN) ==
[2019-12-14] MEDS ORDERED: DIAZEPAM 10 MG/2 ML SYRINGE IV STA (21:41)
[2019-12-14] MEDS ORDERED: SODIUM CHLORIDE 0.9% 1,000 ML IV STA (21:41)
[2019-12-14] MEDS ORDERED: ONDANSETRON 4 MG/2 ML VIAL IV ONE (21:41)
[2019-12-14] MEDS ORDERED: HYDROmorphone 2 MG/1 ML VIAL IV STA (21:42)
[2019-12-14 21:47] LABS: Basophils # 0.1 10*3/uL (0.0-0.2); Basophils % 1.1 % (0.0-0.8); Eosinophils # 0.3 10*3/uL (0.0-0.87); Eosinophils % 3.9 % (0.00-10.9); Hematocrit 37.2 VOL% (35.7-47.0); Hemoglobin 12.3 GM/DL (12.0-16.0); Immature Granulocytes % 0.5 %; Immature Granulocytes Absolute 0.03 #; Lymphocytes # 1.1 10*3/uL (1.4-4.0); Lymphocytes % 16.3 % (21.3-54.2); Mean Corpuscular HGB Conc 33.1 GM/DL (32-36); Mean Corpuscular Volume 88.6 FL (87-102); Mean Platelet Volume 10.6 FL (9.6-12.0); Monocytes % 11.3 % (1.7-12.7); Neutrophils % 66.9 % (38.7-73.9); Platelet Count 289 T/CUMM (130-400); Red Cell Distribution Width 13.8 % (9.3-17.3); White Blood Count 6.6 T/CUMM (4-12)
[2019-12-14] MEDS ORDERED: MEPERIDINE 50 MG/1 ML VIAL ONE (21:57)
[2019-12-14] MEDS ORDERED: MEPERIDINE 50 MG/1 ML VIAL IV STA (21:57)
[2019-12-14 22:15] LABS: PT Patient Result 10.6 SECS (9.6-12.2)
[2019-12-14] MEDS ORDERED: diphenhydrAMINE 50 MG/1 ML VIAL IV STA (22:38)
[2019-12-14 23:26] LABS: Troponin I < 0.015 NG/ML (0.00-0.045)
[2019-12-14 23:27] LABS: Apearance,Urine CLEAR (Clear); Bilirubin,Urine Negative (Negative); Blood, Urine Negative (Negative); Glucose,Urine (UA) Negative (Negative); Ketones,Urine 5 mg/dL (Negative); Mucus,Urine Occasional /LPF (Occasional); Nitrite,Urine Negative (Negative); Protein,Urine 100 MG/DL; RBC,Urine 2 /HPF (0-4); Squamous Epithelial Cell,Urine Occasional /HPF (0-10); Urine Color Yellow (Yellow); Urine Specific Gravity 1.009 (1.001-1.035); Urine Urobilinogen < 2.0 EU/DL (0.2-1.0); WBC,Urine 2 /HPF (0-6)
[2019-12-14 23:27] LABS: Albumin 3.8 G/DL (3.4-5.0); Bilirubin,Total 0.5 MG/DL (0.2-1.0); Calcium 8.9 MG/DL (8.5-10.1); Osmolality,Calculated 258.9 MOS/KG (273-304); Total Protein 6.4 G/DL (6.4-8.3)
[2019-12-15] MEDS ORDERED: fentaNYL 100 MCG/2 ML VIAL IV STA (00:01)
[2019-12-15] MEDS ORDERED: LABETALOL 20 MG/4 ML SYRINGE IV STA (00:07)
[2019-12-15] MEDS ORDERED: ONDANSETRON 4 MG/2 ML VIAL IV ONE (00:10)
[2019-12-15] MEDS ORDERED: ORPHENADRINE 60 MG/2 ML VIAL IV STA (02:26)
[2019-12-15] MEDS: fentaNYL 100 MCG/2 ML VIAL IV PRN ×4 (03:52→13:09)
[2019-12-15] MEDS: LABETALOL 20 MG/4 ML SYRINGE IV PRN ×2 (03:52→07:29)
[2019-12-15] MEDS: ONDANSETRON 4 MG/2 ML VIAL IV PRN ×2 (03:55→07:29)
[2019-12-15] MEDS: SODIUM CHLORIDE 0.9% 1,000 ML IV SCH ×3 (03:58→21:55)
[2019-12-15] MEDS: PANTOPRAZOLE 40 MG VIAL IV SCH (04:03)
[2019-12-15] MEDS: HEPARIN 5,000 UNIT/1 ML VIAL SUBCUT SCH ×2 (04:03→11:09)
[2019-12-15] MEDS: POTASSIUM CHLORIDE RIDER 10 MEQ in PREMIX 1 EACH IV PRN ×4 (06:12→19:34)
[2019-12-15 06:19] LABS: Calcium 8.7 MG/DL (8.5-10.1); Osmolality,Calculated 248.6 MOS/KG (273-304)
[2019-12-15 06:23] LABS: Basophils % 0.4 % (0.0-0.8); Eosinophils # 0.1 10*3/uL (0.0-0.87); Eosinophils % 1.4 % (0.00-10.9); Hematocrit 36.5 VOL% (35.7-47.0); Immature Granulocytes % 0.5 %; Immature Granulocytes Absolute 0.04 #; Lymphocytes # 0.8 10*3/uL (1.4-4.0); Lymphocytes % 9.8 % (21.3-54.2); Mean Corpuscular HGB Conc 32.9 GM/DL (32-36); Mean Corpuscular Volume 87.7 FL (87-102); Monocytes % 8.4 % (1.7-12.7); Neutrophils % 79.5 % (38.7-73.9); Platelet Count 356 T/CUMM (130-400); Red Blood Count 4.16 MC/CUMM (3.8-5.5); Red Cell Distribution Width 13.1 % (9.3-17.3); White Blood Count 7.9 T/CUMM (4-12)
[2019-12-15] MEDS: DIAZEPAM 2 MG TABLET PO PRN ×4 (07:30→18:33)
[2019-12-15] MEDS ORDERED: POTASSIUM CHLORIDE INJ 40 MEQ in SODIUM CHLORIDE 0.9% 500 ML IV SCH (07:30)
[2019-12-15] MEDS: hydrALAZINE 25 MG TABLET PO SCH ×3 (08:11→21:54)
[2019-12-15] MEDS: traMADol 50 MG TABLET PO PRN ×2 (11:09→20:03)
[2019-12-15] MEDS: atenoloL 50 MG TABLET PO SCH ×2 (11:09→21:53)
[2019-12-15] MEDS ORDERED: PROMETHAZINE INJ 12.5 MG in SODIUM CHLORIDE 0.9% 50 ML IV PRN (12:39)
[2019-12-15] MEDS ORDERED: hydrALAZINE 20 MG/1 ML VIAL IV PRN (12:41)
[2019-12-15 14:14] LABS: Apearance,Urine CLEAR (Clear); Bilirubin,Urine Negative (Negative); Blood, Urine Small mg/dL (Negative); Glucose,Urine (UA) Negative (Negative); Ketones,Urine 20 mg/dL (Negative); Mucus,Urine Occasional /LPF (Occasional); Nitrite,Urine Negative (Negative); Protein,Urine 100 MG/DL; RBC,Urine 1 /HPF (0-4); Urine Color Yellow (Yellow); Urine Specific Gravity 1.009 (1.001-1.035); Urine Urobilinogen < 2.0 EU/DL (0.2-1.0); WBC,Urine <1 /HPF (0-6)
[2019-12-15] MEDS: DIGOXIN 0.5 MG/2 ML AMP IV SCH ×3 (14:22→22:02)
[2019-12-15] MEDS: DILTIAZEM 60 MG TABLET PO SCH ×2 (14:48→21:58)
[2019-12-15] MEDS: GABAPENTIN 100 MG CAPSULE PO SCH ×2 (14:50→21:53)
[2019-12-15] MEDS: oxyCODONE IR 5 MG TABLET PO PRN ×2 (16:57→23:17)
[2019-12-15] MEDS: LEVOFLOXACIN INJ 500 MG in PREMIX 1 EACH IV SCH (16:58)
[2019-12-15] MEDS: KETOROLAC 30 MG/1 ML VIAL IV SCH (16:58)
[2019-12-15] MEDS ORDERED: MAGNESIUM SULF RIDER 2 GM in PREMIX 1 EACH IV PRN (17:03)
[2019-12-15] MEDS ORDERED: MAGNESIUM SULF RIDER 4 GM in PREMIX 1 EACH IV PRN (17:03)
[2019-12-15] MEDS ORDERED: ZALEPLON 5 MG CAPSULE PO PRN (19:29)
[2019-12-15] MEDS ORDERED: METOCLOPRAMIDE 10 MG/2 ML VIAL IV ONE (19:45)
[2019-12-15] MEDS ORDERED: APIXABAN 2.5 MG TABLET PO SCH (21:00)
[2019-12-15] MEDS ORDERED: CALCIUM CARBONATE CHEW 500 MG TABLET PO PRN (21:35)
[2019-12-15] MEDS: ACYCLOVIR 800 MG TABLET PO SCH (21:53)
[2019-12-15] MEDS: sulfaSALAzine 500 MG TABLET PO SCH (21:54)
[2019-12-15] MEDS ORDERED: diphenhydrAMINE CAP 25 MG CAPSULE ONE (21:57)
[2019-12-15] MEDS ORDERED: diphenhydrAMINE CAP 25 MG CAPSULE PO PRN (22:00)
[2019-12-16] MEDS: KETOROLAC 30 MG/1 ML VIAL IV SCH ×4 (00:57→17:00)
[2019-12-16] MEDS: DIAZEPAM 2 MG TABLET PO PRN ×2 (00:58→08:37)
[2019-12-16] MEDS: DIGOXIN 0.5 MG/2 ML AMP IV SCH (02:51)
[2019-12-16] MEDS: fentaNYL 100 MCG/2 ML VIAL IV PRN ×4 (03:03→15:29)
[2019-12-16] MEDS: SODIUM CHLORIDE 0.9% 1,000 ML IV SCH ×2 (06:25→16:55)
[2019-12-16] MEDS: LEVOTHYROXINE 50 MCG TABLET PO SCH (06:38)
[2019-12-16 07:13] LABS: Basophils % 0.5 % (0.0-0.8); Eosinophils # 0.2 10*3/uL (0.0-0.87); Hematocrit 32.6 VOL% (35.7-47.0); Hemoglobin 10.7 GM/DL (12.0-16.0); Immature Granulocytes % 0.4 %; Immature Granulocytes Absolute 0.02 #; Lymphocytes # 0.8 10*3/uL (1.4-4.0); Mean Corpuscular HGB Conc 32.8 GM/DL (32-36); Mean Corpuscular Volume 88.6 FL (87-102); Mean Platelet Volume 9.1 FL (9.6-12.0); Monocytes % 13.1 % (1.7-12.7); Platelet Count 290 T/CUMM (130-400); Red Blood Count 3.68 MC/CUMM (3.8-5.5); Red Cell Distribution Width 13.2 % (9.3-17.3); White Blood Count 5.6 T/CUMM (4-12)
[2019-12-16 07:38] LABS: Albumin 3.2 G/DL (3.4-5.0); Bilirubin,Total 0.6 MG/DL (0.2-1.0); Calcium 8.1 MG/DL (8.5-10.1); Osmolality,Calculated 253.1 MOS/KG (273-304)
[2019-12-16 07:51] LABS: Hypochromasia 1+; Ovalocytes Slight; Platelet Estimate Adequate
[2019-12-16] MEDS: traMADol 50 MG TABLET PO PRN ×2 (08:36→21:21)
[2019-12-16] MEDS: ASPIRIN EC 81 MG TABLET PO SCH (08:39)
[2019-12-16] MEDS: ACYCLOVIR 800 MG TABLET PO SCH ×2 (08:39→21:20)
[2019-12-16] MEDS: GABAPENTIN 100 MG CAPSULE PO SCH ×3 (08:39→21:20)
[2019-12-16] MEDS: hydrALAZINE 25 MG TABLET PO SCH ×3 (08:39→21:18)
[2019-12-16] MEDS: TRIAMTERENE/HCTZ 37.5-25 MG CAPSULE PO SCH (08:39)
[2019-12-16] MEDS: sulfaSALAzine 500 MG TABLET PO SCH ×2 (08:40→21:18)
[2019-12-16] MEDS: atenoloL 50 MG TABLET PO SCH ×2 (08:40→21:20)
[2019-12-16] MEDS: DILTIAZEM 60 MG TABLET PO SCH ×3 (08:40→21:19)
[2019-12-16] MEDS: PANTOPRAZOLE 40 MG VIAL IV SCH (08:42)
[2019-12-16] MEDS: LEVOFLOXACIN INJ 500 MG in PREMIX 1 EACH IV SCH (16:52)
[2019-12-16] MEDS ORDERED: ROSUVASTATIN 10 MG TABLET PO SCH (21:00)
[2019-12-16] MEDS: oxyCODONE IR 5 MG TABLET PO PRN (22:42)
[2019-12-17] MEDS: SODIUM CHLORIDE 0.9% 1,000 ML IV SCH ×3 (00:05→17:07)
[2019-12-17] MEDS: KETOROLAC 30 MG/1 ML VIAL IV SCH ×3 (00:09→16:28)
[2019-12-17 06:32] LABS: Basophils % 0.6 % (0.0-0.8); Eosinophils # 0.3 10*3/uL (0.0-0.87); Eosinophils % 7.1 % (0.00-10.9); Hematocrit 32.7 VOL% (35.7-47.0); Hemoglobin 10.5 GM/DL (12.0-16.0); Immature Granulocytes % 0.2 %; Immature Granulocytes Absolute 0.01 #; Lymphocytes # 0.9 10*3/uL (1.4-4.0); Lymphocytes % 18.2 % (21.3-54.2); Mean Corpuscular HGB Conc 32.1 GM/DL (32-36); Mean Corpuscular Volume 90.8 FL (87-102); Mean Platelet Volume 9.5 FL (9.6-12.0); Monocytes % 16.3 % (1.7-12.7); Neutrophils % 57.6 % (38.7-73.9); Platelet Count 285 T/CUMM (130-400); Red Cell Distribution Width 13.5 % (9.3-17.3); White Blood Count 4.7 T/CUMM (4-12)
[2019-12-17] MEDS: traMADol 50 MG TABLET PO PRN ×2 (06:33→14:00)
[2019-12-17 06:42] LABS: Calcium 8.2 MG/DL (8.5-10.1); Osmolality,Calculated 259.5 MOS/KG (273-304)
[2019-12-17 06:56] LABS: Eosinophils 7 % (0-10); Lymphocytes 17 % (20-55); Segmented Neutrophils 67 % (50-85); Total Cells Counted 100
[2019-12-17 06:57] LABS: Albumin 2.9 G/DL (3.4-5.0); Bilirubin,Total 0.4 MG/DL (0.2-1.0); Calcium 8.1 MG/DL (8.5-10.1); Osmolality,Calculated 258.7 MOS/KG (273-304); Total Protein 5.6 G/DL (6.4-8.3)
[2019-12-17 06:57] LABS: Hypochromasia 1+; Microcytosis Slight; Platelet Estimate Normal
[2019-12-17] MEDS: LEVOTHYROXINE 50 MCG TABLET PO SCH (07:17)
[2019-12-17] MEDS: PANTOPRAZOLE 40 MG VIAL IV SCH (08:04)
[2019-12-17] MEDS: DIAZEPAM 2 MG TABLET PO PRN ×2 (08:05→15:16)
[2019-12-17] MEDS: oxyCODONE IR 5 MG TABLET PO PRN ×2 (08:05→15:16)
[2019-12-17] MEDS ORDERED: POTASSIUM CHLORIDE 20 MEQ TABLET PO ONE (08:24)
[2019-12-17] MEDS: hydrALAZINE 25 MG TABLET PO SCH ×3 (10:25→20:37)
[2019-12-17] MEDS: DILTIAZEM 60 MG TABLET PO SCH ×3 (10:25→20:36)
[2019-12-17] MEDS: GABAPENTIN 100 MG CAPSULE PO SCH ×3 (10:26→20:37)
[2019-12-17] MEDS ORDERED: TISSUE ADHESIVE 1 EACH APPLICATOR TOP ONE (11:39)
[2019-12-17] MEDS ORDERED: ROPIVACAINE 0.5% 30 ML VIAL ONE (11:40)
[2019-12-17] MEDS ORDERED: fentaNYL 100 MCG/2 ML VIAL ONE (13:01)
[2019-12-17] MEDS ORDERED: propofoL 200 MG/20 ML VIAL IV ONE (13:01)
[2019-12-17] MEDS ORDERED: LIDOCAINE 2% 5 ML VIAL ONE (13:01)
[2019-12-17] MEDS: sulfaSALAzine 500 MG TABLET PO SCH ×2 (13:59→20:35)
[2019-12-17] MEDS: ACYCLOVIR 800 MG TABLET PO SCH ×2 (13:59→20:35)
[2019-12-17] MEDS: TRIAMTERENE/HCTZ 37.5-25 MG CAPSULE PO SCH (14:00)
[2019-12-17] MEDS: atenoloL 50 MG TABLET PO SCH ×2 (14:00→20:39)
[2019-12-17] MEDS: LEVOFLOXACIN INJ 500 MG in PREMIX 1 EACH IV SCH (15:17)
[2019-12-17] MEDS ORDERED: HYDROmorphone 2 MG/1 ML VIAL IV PRN (16:13)
[2019-12-17] MEDS: GABAPENTIN 400 MG CAPSULE PO SCH (20:37)
[2019-12-18] MEDS: oxyCODONE IR 5 MG TABLET PO PRN ×2 (00:18→07:57)
[2019-12-18] MEDS: KETOROLAC 30 MG/1 ML VIAL IV SCH ×2 (02:11→08:07)
[2019-12-18] MEDS: SODIUM CHLORIDE 0.9% 1,000 ML IV SCH ×2 (02:12→09:01)
[2019-12-18 05:21] LABS: Basophils % 0.7 % (0.0-0.8); Eosinophils # 0.3 10*3/uL (0.0-0.87); Eosinophils % 4.7 % (0.00-10.9); Hemoglobin 8.9 GM/DL (12.0-16.0); Immature Granulocytes % 0.3 %; Immature Granulocytes Absolute 0.02 #; Lymphocytes # 0.8 10*3/uL (1.4-4.0); Mean Corpuscular HGB Conc 31.8 GM/DL (32-36); Mean Corpuscular Volume 91.5 FL (87-102); Mean Platelet Volume 9.5 FL (9.6-12.0); Neutrophils % 67.3 % (38.7-73.9); Platelet Count 275 T/CUMM (130-400); Red Blood Count 3.06 MC/CUMM (3.8-5.5); Red Cell Distribution Width 13.6 % (9.3-17.3); White Blood Count 5.8 T/CUMM (4-12)
[2019-12-18 05:50] LABS: Calcium 8.3 MG/DL (8.5-10.1); Osmolality,Calculated 259.8 MOS/KG (273-304)
[2019-12-18] MEDS: LEVOTHYROXINE 50 MCG TABLET PO SCH (06:50)
[2019-12-18] MEDS: hydrALAZINE 25 MG TABLET PO SCH ×2 (08:04→16:49)
[2019-12-18] MEDS: GABAPENTIN 400 MG CAPSULE PO SCH ×2 (08:04→16:50)
[2019-12-18] MEDS: ACYCLOVIR 800 MG TABLET PO SCH (08:04)
[2019-12-18] MEDS: GABAPENTIN 100 MG CAPSULE PO SCH ×2 (08:04→16:50)
[2019-12-18] MEDS: atenoloL 50 MG TABLET PO SCH (08:04)
[2019-12-18] MEDS: TRIAMTERENE/HCTZ 37.5-25 MG CAPSULE PO SCH (08:04)
[2019-12-18] MEDS: ASPIRIN EC 81 MG TABLET PO SCH (08:05)
[2019-12-18] MEDS: sulfaSALAzine 500 MG TABLET PO SCH (08:06)
[2019-12-18] MEDS: DILTIAZEM 60 MG TABLET PO SCH ×2 (08:07→16:50)
[2019-12-18] MEDS: PANTOPRAZOLE 40 MG VIAL IV SCH (08:07)
[2019-12-18] MEDS ORDERED: POTASSIUM CHLORIDE 10 MEQ TABLET PO SCH (09:00)
[2019-12-18] MEDS ORDERED: CHOLECALCIFEROL 5,000 UNIT TABLET PO SCH (09:00)
[2019-12-18 15:57] VITALS: BP 122/60
[2019-12-18] MEDS: LEVOFLOXACIN INJ 500 MG in PREMIX 1 EACH IV SCH (16:50)
== END 2019-12-18 16:49 | disposition home health service (06) | DRG 478 ==
LOC: EDBD → EDUNIT# → N.ED 21:06 → N.CC 21:06 → N.EDINP 21:06 → SUATTDRO 12-15 02:12 → N.CC 12-15 03:25 → SUATTDRO 12-15 11:32 → N.ICU 12-15 18:12 → N.3E 12-16 15:38
PROVIDERS: ADMIT Internal Medicine; ATTEND Family Medicine

== ENCOUNTER 2020-02-22 13:43 | Inpatient (IN) ==
[2020-02-22 14:35] LABS: Basophils % 0.1 % (0.0-0.8); Eosinophils % 0.1 % (0.00-10.9); Hemoglobin 8.9 GM/DL (12.0-16.0); Immature Granulocytes % 1.9 %; Immature Granulocytes Absolute 0.29 #; Lymphocytes # 1.6 10*3/uL (1.4-4.0); Lymphocytes % 10.7 % (21.3-54.2); Mean Corpuscular HGB Conc 31.8 GM/DL (32-36); Mean Corpuscular Volume 87.5 FL (87-102); Mean Platelet Volume 10.6 FL (9.6-12.0); Monocytes % 8.7 % (1.7-12.7); Neutrophils % 78.5 % (38.7-73.9); Platelet Count 317 T/CUMM (130-400); Red Cell Distribution Width 13.9 % (9.3-17.3)
[2020-02-22 14:45] LABS: INR 1.4; PT Patient Result 14.3 SECS (9.8-11.9); Partial Thromboplastin Time 35.6 SECS (23.9-33.8)
[2020-02-22] MEDS ORDERED: SODIUM CHLORIDE 0.9% 500 ML IV STA (14:45)
[2020-02-22 15:01] LABS: Albumin 3.5 G/DL (3.4-5.0); Bilirubin,Total 1.1 MG/DL (0.2-1.0); Calcium 8.4 MG/DL (8.5-10.1); Osmolality,Calculated 254.9 MOS/KG (273-304); Total Protein 5.6 G/DL (6.4-8.3)
[2020-02-22] MEDS ORDERED: SODIUM CHLORIDE 0.9% 1,000 ML IV STA ×2 (15:02→15:54)
[2020-02-22 15:10] LABS: Ferritin 199.8 ng/ml (8-252)
[2020-02-22] MEDS ORDERED: MEROPENEM 1,000 MG in SODIUM CHLORIDE 0.9% 100 ML IV ONE (15:13)
[2020-02-22] MEDS ORDERED: VANCOMYCIN INJ 1,000 MG in SODIUM CHLORIDE 0.9% 250 ML IV STA (15:13)
[2020-02-22 15:16] LABS: Apearance,Urine CLEAR (Clear); Bilirubin,Urine Negative (Negative); Blood, Urine Negative (Negative); Glucose,Urine (UA) Negative (Negative); Hyaline Casts,Urine 1 /LPF (0-3); Ketones,Urine Negative (Negative); Nitrite,Urine Negative (Negative); Protein,Urine Negative; Urine Color Yellow (Yellow); Urine Specific Gravity 1.012 (1.001-1.035); Urine Urobilinogen < 2.0 EU/DL (0.2-1.0); WBC,Urine <1 /HPF (0-6)
[2020-02-22 15:21] LABS: Barbiturates Screen,Urine Negative (Negative); Benzodiazepines Screen,Urine Negative (Negative); Cannabinoid Screen,Urine Negative (Negative); Opiate Screen,Urine Positive (Negative); Phencyclidine Screen,Urine Negative (Negative)
[2020-02-22] MEDS ORDERED: LORazepam 2 MG/1 ML VIAL ONE (16:07)
[2020-02-22] MEDS ORDERED: LORazepam 2 MG/1 ML VIAL IV STA (16:08)
[2020-02-22] MEDS ORDERED: HYDROmorphone 2 MG/1 ML VIAL ONE (16:28)
[2020-02-22] MEDS ORDERED: HYDROmorphone 2 MG/1 ML VIAL IV STA (16:40)
[2020-02-22] MEDS ORDERED: ONDANSETRON 4 MG/2 ML VIAL IV PRN (16:45)
[2020-02-22] MEDS: SODIUM CHLORIDE 0.9% 1,000 ML IV SCH (17:10)
[2020-02-22] MEDS ORDERED: HYDROmorphone 2 MG/1 ML VIAL IV PRN (17:30)
[2020-02-22] MEDS ORDERED: SODIUM BICARBONATE 50 MEQ/50 ML VIAL IV ONE (18:06)
[2020-02-22] MEDS: PANTOPRAZOLE 40 MG VIAL IV SCH (18:36)
[2020-02-22 19:52] LABS: Calcium 7.6 MG/DL (8.5-10.1); Osmolality,Calculated 267.1 MOS/KG (273-304)
[2020-02-23] MEDS: SODIUM CHLORIDE 0.9% 1,000 ML IV SCH ×3 (03:55→23:49)
[2020-02-23] MEDS: traMADol 50 MG TABLET PO PRN ×2 (04:40→19:40)
[2020-02-23 05:51] LABS: Basophils % 0.1 % (0.0-0.8); Eosinophils % 0.2 % (0.00-10.9); Hematocrit 25.3 VOL% (35.7-47.0); Hemoglobin 7.9 GM/DL (12.0-16.0); Immature Granulocytes % 0.7 %; Immature Granulocytes Absolute 0.07 #; Lymphocytes # 0.9 10*3/uL (1.4-4.0); Lymphocytes % 8.7 % (21.3-54.2); Mean Corpuscular HGB Conc 31.2 GM/DL (32-36); Mean Corpuscular Volume 86.1 FL (87-102); Mean Platelet Volume 10.7 FL (9.6-12.0); Monocytes % 7.8 % (1.7-12.7); NRBC # 0.02 10*3/uL; Neutrophils % 82.5 % (38.7-73.9); Platelet Count 258 T/CUMM (130-400); Red Blood Count 2.94 MC/CUMM (3.8-5.5); Red Cell Distribution Width 13.9 % (9.3-17.3); White Blood Count 9.7 T/CUMM (4-12)
[2020-02-23 06:40] LABS: Albumin 2.8 G/DL (3.4-5.0); Bilirubin,Total 1.1 MG/DL (0.2-1.0); Calcium 7.3 MG/DL (8.5-10.1); Osmolality,Calculated 271.9 MOS/KG (273-304); Total Protein 5.2 G/DL (6.4-8.3)
[2020-02-23] MEDS ORDERED: VANCOMYCIN INJ 750 MG in SODIUM CHLORIDE 0.9% 250 ML IV PRN (09:00)
[2020-02-23] MEDS: MEROPENEM 500 MG in SODIUM CHLORIDE 0.9% 100 ML IV SCH (09:03)
[2020-02-23] MEDS ORDERED: ENOXAPARIN 80 MG/0.8 ML SYRINGE SUBCUT SCH (10:00)
[2020-02-23] MEDS ORDERED: ASPIRIN 325 MG TABLET PO ONE (10:10)
[2020-02-23 10:20] LABS: Calcium 7.4 MG/DL (8.5-10.1); Osmolality,Calculated 274.7 MOS/KG (273-304)
[2020-02-23] MEDS: ASPIRIN 300 MG SUPP RECTAL SCH ×2 (10:40→13:21)
[2020-02-23 11:29] LABS: Hepatitis B Core IgM Quant 0.08 Index; Hepatitis B Surface Ag Quant 0.14 Index; Hepatitis B Surface Ag Result Negative (Negative); Hepatitis C Virus Ab Quant 0.09 Index; Hepatitis C Virus Ab Result Negative (Negative)
[2020-02-23] MEDS: PANTOPRAZOLE 40 MG VIAL IV SCH (17:06)
[2020-02-23 18:45] LABS: Calcium 7.8 MG/DL (8.5-10.1); Osmolality,Calculated 270.8 MOS/KG (273-304)
[2020-02-23] MEDS: hydrALAZINE 25 MG TABLET PO SCH (21:23)
[2020-02-24] MEDS: traMADol 50 MG TABLET PO PRN ×4 (01:31→19:21)
[2020-02-24 05:43] LABS: Basophils % 0.1 % (0.0-0.8); Eosinophils % 0.2 % (0.00-10.9); Hematocrit 26.4 VOL% (35.7-47.0); Hemoglobin 8.5 GM/DL (12.0-16.0); Immature Granulocytes % 1.4 %; Immature Granulocytes Absolute 0.14 #; Lymphocytes # 0.5 10*3/uL (1.4-4.0); Lymphocytes % 5.3 % (21.3-54.2); Mean Corpuscular HGB Conc 32.2 GM/DL (32-36); Mean Corpuscular Volume 84.1 FL (87-102); Mean Platelet Volume 10.3 FL (9.6-12.0); Monocytes % 8.4 % (1.7-12.7); NRBC # 0.23 10*3/uL; Neutrophils % 84.6 % (38.7-73.9); Platelet Count 269 T/CUMM (130-400); Red Blood Count 3.14 MC/CUMM (3.8-5.5); Red Cell Distribution Width 14.1 % (9.3-17.3); White Blood Count 9.8 T/CUMM (4-12)
[2020-02-24] MEDS: LEVOTHYROXINE 50 MCG TABLET PO SCH (05:54)
[2020-02-24 05:59] LABS: Risk Ratio 3.25; VLDL CHOLESTEROL 25.8 MG/DL
[2020-02-24 06:07] LABS: Albumin 3.1 G/DL (3.4-5.0); Bilirubin,Total 1.2 MG/DL (0.2-1.0); Calcium 8.2 MG/DL (8.5-10.1); Osmolality,Calculated 269.5 MOS/KG (273-304); Total Protein 5.7 G/DL (6.4-8.3)
[2020-02-24 06:22] LABS: INR 1.2; PT Patient Result 12.4 SECS (9.8-11.9)
[2020-02-24] MEDS: atenoloL 50 MG TABLET PO SCH ×2 (08:58→20:16)
[2020-02-24] MEDS: hydrALAZINE 25 MG TABLET PO SCH ×3 (08:58→20:16)
[2020-02-24] MEDS: MEROPENEM 500 MG in SODIUM CHLORIDE 0.9% 100 ML IV SCH ×3 (09:14→18:00)
[2020-02-24] MEDS: ENOXAPARIN 80 MG/0.8 ML SYRINGE SUBCUT SCH ×2 (09:15→20:15)
[2020-02-24] MEDS: ASPIRIN 300 MG SUPP RECTAL SCH (09:16)
[2020-02-24] MEDS: SODIUM CHLORIDE 0.9% 1,000 ML IV SCH ×2 (09:34→20:15)
[2020-02-24] MEDS: POTASSIUM CHLORIDE RIDER 10 MEQ in PREMIX 1 EACH IV SCH ×4 (09:49→12:42)
[2020-02-24] MEDS: hydrALAZINE 20 MG/1 ML VIAL IV PRN ×2 (14:10→18:40)
[2020-02-24] MEDS ORDERED: KETOROLAC 15 MG/1 ML VIAL IV ONE ×2 (16:04→16:26)
[2020-02-24] MEDS ORDERED: LORazepam 2 MG/1 ML VIAL IV PRN (16:16)
[2020-02-24] MEDS: PANTOPRAZOLE 40 MG VIAL IV SCH (17:45)
[2020-02-24] MEDS: ALBUTEROL 2.5 MG/3 ML NEB RESP TX PRN (19:55)
[2020-02-25] MEDS: MEROPENEM 500 MG in SODIUM CHLORIDE 0.9% 100 ML IV SCH ×3 (01:25→18:38)
[2020-02-25] MEDS: hydrALAZINE 20 MG/1 ML VIAL IV PRN (04:08)
[2020-02-25 05:49] LABS: Basophils % 0.2 % (0.0-0.8); Eosinophils % 0.2 % (0.00-10.9); Hematocrit 26.7 VOL% (35.7-47.0); Hemoglobin 8.6 GM/DL (12.0-16.0); Immature Granulocytes % 1.5 %; Immature Granulocytes Absolute 0.13 #; Lymphocytes # 0.7 10*3/uL (1.4-4.0); Lymphocytes % 7.6 % (21.3-54.2); Mean Corpuscular HGB Conc 32.2 GM/DL (32-36); Mean Corpuscular Volume 84.8 FL (87-102); Mean Platelet Volume 10.2 FL (9.6-12.0); Monocytes % 10.6 % (1.7-12.7); NRBC # 0.11 10*3/uL; Neutrophils % 79.9 % (38.7-73.9); Platelet Count 246 T/CUMM (130-400); Red Blood Count 3.15 MC/CUMM (3.8-5.5); White Blood Count 8.9 T/CUMM (4-12)
[2020-02-25] MEDS: SODIUM CHLORIDE 0.9% 1,000 ML IV SCH (06:03)
[2020-02-25] MEDS: LEVOTHYROXINE 50 MCG TABLET PO SCH (06:03)
[2020-02-25 06:25] LABS: Albumin 2.7 G/DL (3.4-5.0); Bilirubin,Total 1.5 MG/DL (0.2-1.0); Calcium 7.9 MG/DL (8.5-10.1); Osmolality,Calculated 258.8 MOS/KG (273-304); Total Protein 5.1 G/DL (6.4-8.3)
[2020-02-25] MEDS: hydrALAZINE 25 MG TABLET PO SCH ×3 (08:29→21:26)
[2020-02-25] MEDS: POTASSIUM CHLORIDE 20 MEQ TABLET PO PRN (08:29)
[2020-02-25] MEDS: atenoloL 50 MG TABLET PO SCH ×2 (08:30→21:26)
[2020-02-25] MEDS: POTASSIUM CHLORIDE RIDER 10 MEQ in PREMIX 1 EACH IV PRN ×2 (08:34→09:35)
[2020-02-25] MEDS: ENOXAPARIN 80 MG/0.8 ML SYRINGE SUBCUT SCH (08:36)
[2020-02-25] MEDS: traMADol 50 MG TABLET PO PRN ×3 (13:47→21:25)
[2020-02-25] MEDS: POTASSIUM CHLORIDE INJ 20 MEQ in LACTATED RINGERS 1,000 ML IV SCH (15:09)
[2020-02-25] MEDS: ASPIRIN 300 MG SUPP RECTAL SCH (15:27)
[2020-02-25] MEDS: ALBUTEROL 2.5 MG/3 ML NEB RESP TX PRN (17:40)
[2020-02-25] MEDS: ENOXAPARIN 40 MG/0.4 ML SYRINGE SUBCUT SCH (18:40)
[2020-02-25] MEDS: PANTOPRAZOLE 40 MG VIAL IV SCH (18:40)
[2020-02-25] MEDS ORDERED: POTASSIUM CHLORIDE 20 MEQ TABLET PO ONE (18:46)
[2020-02-25] MEDS ORDERED: ALBUTEROL/IPRATROPIUM 3 ML NEB RESP TX PRN (19:07)
[2020-02-26] MEDS: ALBUTEROL/IPRATROPIUM 3 ML NEB RESP TX SCH ×4 (00:54→19:47)
[2020-02-26] MEDS: POTASSIUM CHLORIDE INJ 20 MEQ in LACTATED RINGERS 1,000 ML IV SCH (02:42)
[2020-02-26] MEDS: MEROPENEM 500 MG in SODIUM CHLORIDE 0.9% 100 ML IV SCH ×3 (02:42→17:47)
[2020-02-26] MEDS: ENOXAPARIN 40 MG/0.4 ML SYRINGE SUBCUT SCH ×2 (06:12→17:42)
[2020-02-26] MEDS: LEVOTHYROXINE 50 MCG TABLET PO SCH (06:12)
[2020-02-26 07:00] LABS: Basophils % 0.2 % (0.0-0.8); Eosinophils # 0.1 10*3/uL (0.0-0.87); Eosinophils % 0.9 % (0.00-10.9); Hematocrit 25.4 VOL% (35.7-47.0); Hemoglobin 8.3 GM/DL (12.0-16.0); Immature Granulocytes % 1.1 %; Immature Granulocytes Absolute 0.09 #; Lymphocytes # 0.8 10*3/uL (1.4-4.0); Lymphocytes % 9.8 % (21.3-54.2); Mean Corpuscular HGB Conc 32.7 GM/DL (32-36); Mean Corpuscular Volume 82.5 FL (87-102); Mean Platelet Volume 10.4 FL (9.6-12.0); Monocytes % 14.1 % (1.7-12.7); NRBC # 0.03 10*3/uL; Neutrophils % 73.9 % (38.7-73.9); Platelet Count 263 T/CUMM (130-400); Red Blood Count 3.08 MC/CUMM (3.8-5.5); Red Cell Distribution Width 14.2 % (9.3-17.3)
[2020-02-26 07:18] LABS: Albumin 2.8 G/DL (3.4-5.0); Bilirubin,Total 1.5 MG/DL (0.2-1.0); Calcium 7.7 MG/DL (8.5-10.1); Osmolality,Calculated 261.5 MOS/KG (273-304); Total Protein 5.2 G/DL (6.4-8.3)
[2020-02-26] MEDS ORDERED: FUROSEMIDE 20 MG/2 ML VIAL IV ONE (08:58)
[2020-02-26] MEDS ORDERED: MAGNESIUM SULF RIDER 4 GM in PREMIX 1 EACH IV PRN (09:00)
[2020-02-26] MEDS: DILTIAZEM 30 MG TABLET PO SCH ×3 (09:12→21:50)
[2020-02-26] MEDS: atenoloL 50 MG TABLET PO SCH ×2 (09:12→21:50)
[2020-02-26] MEDS: hydrALAZINE 25 MG TABLET PO SCH ×3 (09:12→21:49)
[2020-02-26] MEDS: ASPIRIN EC 325 MG TABLET PO SCH (09:12)
[2020-02-26 09:21] LABS: % Iron Saturation 9.9 % (18-50)
[2020-02-26 09:47] LABS: Folate 9.3 NG/ML (5.4-24.0); Vitamin B12 > 2000 PG/ML (211-911)
[2020-02-26] MEDS: MAGNESIUM SULF RIDER 2 GM in PREMIX 1 EACH IV PRN (10:19)
[2020-02-26] MEDS ORDERED: POTASSIUM CHLORIDE 20 MEQ TABLET PO ONE ×2 (10:44→16:26)
[2020-02-26] MEDS: traMADol 50 MG TABLET PO PRN ×2 (14:57→19:48)
[2020-02-26] MEDS: PANTOPRAZOLE 40 MG VIAL IV SCH (17:41)
[2020-02-27] MEDS: MEROPENEM 500 MG in SODIUM CHLORIDE 0.9% 100 ML IV SCH ×3 (00:28→16:25)
[2020-02-27] MEDS: POTASSIUM CHLORIDE INJ 20 MEQ in LACTATED RINGERS 1,000 ML IV SCH (00:29)
[2020-02-27] MEDS: ALBUTEROL/IPRATROPIUM 3 ML NEB RESP TX SCH ×4 (01:50→19:12)
[2020-02-27 05:26] LABS: Basophils % 0.2 % (0.0-0.8); Eosinophils # 0.1 10*3/uL (0.0-0.87); Eosinophils % 0.7 % (0.00-10.9); Hematocrit 25.2 VOL% (35.7-47.0); Hemoglobin 8.3 GM/DL (12.0-16.0); Immature Granulocytes % 1.4 %; Immature Granulocytes Absolute 0.14 #; Lymphocytes # 1.1 10*3/uL (1.4-4.0); Lymphocytes % 11.5 % (21.3-54.2); Mean Corpuscular HGB Conc 32.9 GM/DL (32-36); Mean Corpuscular Volume 82.9 FL (87-102); Mean Platelet Volume 9.8 FL (9.6-12.0); Monocytes % 14.1 % (1.7-12.7); NRBC # 0.03 10*3/uL; Neutrophils % 72.1 % (38.7-73.9); Platelet Count 279 T/CUMM (130-400); Red Blood Count 3.04 MC/CUMM (3.8-5.5); Red Cell Distribution Width 14.3 % (9.3-17.3); White Blood Count 9.9 T/CUMM (4-12)
[2020-02-27] MEDS: LEVOTHYROXINE 50 MCG TABLET PO SCH (05:31)
[2020-02-27] MEDS: ENOXAPARIN 40 MG/0.4 ML SYRINGE SUBCUT SCH (05:31)
[2020-02-27 05:51] LABS: Albumin 3.1 G/DL (3.4-5.0); Bilirubin,Total 2.2 MG/DL (0.2-1.0); Calcium 7.9 MG/DL (8.5-10.1); Osmolality,Calculated 258.8 MOS/KG (273-304); Total Protein 5.5 G/DL (6.4-8.3)
[2020-02-27] MEDS: traMADol 50 MG TABLET PO PRN ×3 (07:09→20:50)
[2020-02-27] MEDS ORDERED: FUROSEMIDE 40 MG/4 ML VIAL IV ONE (08:25)
[2020-02-27] MEDS: ASPIRIN EC 325 MG TABLET PO SCH (09:06)
[2020-02-27] MEDS: hydrALAZINE 25 MG TABLET PO SCH ×3 (09:06→20:50)
[2020-02-27] MEDS: atenoloL 50 MG TABLET PO SCH ×2 (09:06→20:50)
[2020-02-27] MEDS: DILTIAZEM 30 MG TABLET PO SCH (09:06)
[2020-02-27] MEDS ORDERED: DILTIAZEM CD 120 MG CAPSULE PO SCH (09:30)
[2020-02-27] MEDS: FERRIC GLUCONATE COMPLEX 125 MG in SODIUM CHLORIDE 0.9% 100 ML IV SCH (10:39)
[2020-02-27] MEDS: DILTIAZEM CD 240 MG CAPSULE PO SCH (13:35)
[2020-02-27] MEDS: hydrALAZINE 20 MG/1 ML VIAL IV PRN (16:24)
[2020-02-27] MEDS: MAGNESIUM SULF RIDER 2 GM in PREMIX 1 EACH IV PRN (18:52)
[2020-02-28] MEDS: ALBUTEROL/IPRATROPIUM 3 ML NEB RESP TX SCH ×4 (00:55→19:31)
[2020-02-28] MEDS: MEROPENEM 500 MG in SODIUM CHLORIDE 0.9% 100 ML IV SCH ×3 (01:49→16:26)
[2020-02-28] MEDS: traMADol 50 MG TABLET PO PRN ×4 (05:13→21:19)
[2020-02-28] MEDS: LEVOTHYROXINE 50 MCG TABLET PO SCH (05:13)
[2020-02-28 06:29] LABS: Basophils % 0.3 % (0.0-0.8); Eosinophils # 0.2 10*3/uL (0.0-0.87); Eosinophils % 2.3 % (0.00-10.9); Hematocrit 25.6 VOL% (35.7-47.0); Hemoglobin 8.4 GM/DL (12.0-16.0); Immature Granulocytes % 1.1 %; Immature Granulocytes Absolute 0.08 #; Lymphocytes # 0.9 10*3/uL (1.4-4.0); Lymphocytes % 12.1 % (21.3-54.2); Mean Corpuscular HGB Conc 32.8 GM/DL (32-36); Mean Corpuscular Volume 82.6 FL (87-102); Mean Platelet Volume 9.9 FL (9.6-12.0); NRBC # 0.02 10*3/uL; Neutrophils % 67.2 % (38.7-73.9); Platelet Count 286 T/CUMM (130-400); Red Cell Distribution Width 14.4 % (9.3-17.3); White Blood Count 7.1 T/CUMM (4-12)
[2020-02-28 06:50] LABS: Atypical Lymphocytes Few; Eosinophils 2 % (0-10); Hypochromasia 1+; Lymphocytes 12 % (20-55); Segmented Neutrophils 72 % (50-85); Total Cells Counted 100
[2020-02-28 06:51] LABS: Ovalocytes Slight; Polychromasia Slight; Tear Drop Cells Slight
[2020-02-28 06:52] LABS: Microcytosis Slight; Platelet Estimate Normal
[2020-02-28 07:00] LABS: Albumin 2.8 G/DL (3.4-5.0); Bilirubin,Total 1.8 MG/DL (0.2-1.0); Calcium 8.3 MG/DL (8.5-10.1); Osmolality,Calculated 258.7 MOS/KG (273-304); Total Protein 5.3 G/DL (6.4-8.3)
[2020-02-28] MEDS: ASPIRIN EC 325 MG TABLET PO SCH (08:46)
[2020-02-28] MEDS: DILTIAZEM CD 240 MG CAPSULE PO SCH (08:46)
[2020-02-28] MEDS: RIVAROXABAN 20 MG TABLET PO SCH (08:46)
[2020-02-28] MEDS: POTASSIUM CHLORIDE 20 MEQ TABLET PO PRN ×3 (08:46→16:25)
[2020-02-28] MEDS: atenoloL 50 MG TABLET PO SCH ×2 (08:47→21:19)
[2020-02-28] MEDS: FERRIC GLUCONATE COMPLEX 125 MG in SODIUM CHLORIDE 0.9% 100 ML IV SCH (08:48)
[2020-02-28 22:47] LABS: Apearance,Urine CLEAR (Clear); Bilirubin,Urine Negative (Negative); Blood, Urine Moderate mg/dL (Negative); Glucose,Urine (UA) Negative (Negative); Hyaline Casts,Urine 1 /LPF (0-3); Ketones,Urine 20 mg/dL (Negative); Nitrite,Urine Negative (Negative); Protein,Urine 30 MG/DL; RBC,Urine 78 /HPF (0-4); Renal Epithelial Cells,Urine Occasional /HPF (<1); Squamous Epithelial Cell,Urine Occasional /HPF (0-10); Urine Color Yellow (Yellow); Urine Specific Gravity 1.009 (1.001-1.035); WBC,Urine 16 /HPF (0-6)
[2020-02-29] MEDS: MEROPENEM 500 MG in SODIUM CHLORIDE 0.9% 100 ML IV SCH ×3 (01:20→16:29)
[2020-02-29] MEDS ORDERED: KETOROLAC 30 MG/1 ML VIAL IV ONE (01:36)
[2020-02-29] MEDS: ALBUTEROL/IPRATROPIUM 3 ML NEB RESP TX SCH ×4 (01:46→19:22)
[2020-02-29] MEDS: traMADol 50 MG TABLET PO PRN ×3 (03:20→16:30)
[2020-02-29] MEDS: LEVOTHYROXINE 50 MCG TABLET PO SCH (05:42)
[2020-02-29 06:22] LABS: Basophils % 0.2 % (0.0-0.8); Eosinophils # 0.2 10*3/uL (0.0-0.87); Hematocrit 26.9 VOL% (35.7-47.0); Hemoglobin 8.6 GM/DL (12.0-16.0); Immature Granulocytes % 1.3 %; Immature Granulocytes Absolute 0.12 #; Lymphocytes # 0.9 10*3/uL (1.4-4.0); Mean Corpuscular Volume 85.7 FL (87-102); Mean Platelet Volume 10.1 FL (9.6-12.0); Monocytes % 14.1 % (1.7-12.7); Neutrophils % 72.4 % (38.7-73.9); Platelet Count 337 T/CUMM (130-400); Red Blood Count 3.14 MC/CUMM (3.8-5.5); Red Cell Distribution Width 14.8 % (9.3-17.3); White Blood Count 9.1 T/CUMM (4-12)
[2020-02-29 06:40] LABS: Albumin 2.9 G/DL (3.4-5.0); Bilirubin,Total 1.6 MG/DL (0.2-1.0); Calcium 8.5 MG/DL (8.5-10.1); Osmolality,Calculated 253.1 MOS/KG (273-304); Total Protein 5.4 G/DL (6.4-8.3)
[2020-02-29] MEDS ORDERED: metOLazone 2.5 MG TABLET PO ONE (07:29)
[2020-02-29] MEDS: ASPIRIN EC 325 MG TABLET PO SCH (09:02)
[2020-02-29] MEDS: DILTIAZEM CD 240 MG CAPSULE PO SCH (09:03)
[2020-02-29] MEDS: RIVAROXABAN 20 MG TABLET PO SCH (09:03)
[2020-02-29] MEDS: atenoloL 50 MG TABLET PO SCH ×2 (09:03→20:48)
[2020-02-29] MEDS: FERRIC GLUCONATE COMPLEX 125 MG in SODIUM CHLORIDE 0.9% 100 ML IV SCH (10:29)
[2020-02-29] MEDS: POTASSIUM CHLORIDE 20 MEQ TABLET PO PRN (10:30)
[2020-03-01] MEDS: ALBUTEROL/IPRATROPIUM 3 ML NEB RESP TX SCH ×4 (00:54→19:25)
[2020-03-01] MEDS: MEROPENEM 500 MG in SODIUM CHLORIDE 0.9% 100 ML IV SCH ×3 (01:30→16:15)
[2020-03-01 06:07] LABS: Basophils % 0.3 % (0.0-0.8); Eosinophils # 0.1 10*3/uL (0.0-0.87); Hematocrit 30.4 VOL% (35.7-47.0); Hemoglobin 9.9 GM/DL (12.0-16.0); Immature Granulocytes % 1.1 %; Lymphocytes # 0.8 10*3/uL (1.4-4.0); Lymphocytes % 9.1 % (21.3-54.2); Mean Corpuscular HGB Conc 32.6 GM/DL (32-36); Mean Corpuscular Volume 82.8 FL (87-102); Mean Platelet Volume 10.1 FL (9.6-12.0); Monocytes % 13.3 % (1.7-12.7); Neutrophils % 75.2 % (38.7-73.9); Platelet Count 387 T/CUMM (130-400); Red Blood Count 3.67 MC/CUMM (3.8-5.5); Red Cell Distribution Width 15.4 % (9.3-17.3)
[2020-03-01] MEDS: LEVOTHYROXINE 50 MCG TABLET PO SCH (06:21)
[2020-03-01 06:38] LABS: Hypochromasia 1+; Platelet Estimate Adequate
[2020-03-01 06:53] LABS: Albumin 3.2 G/DL (3.4-5.0); Bilirubin,Total 1.8 MG/DL (0.2-1.0); Calcium 9.6 MG/DL (8.5-10.1); Osmolality,Calculated 250.4 MOS/KG (273-304); Total Protein 6.2 G/DL (6.4-8.3)
[2020-03-01] MEDS: ALBUMIN 25% 25 GM in PREMIX 1 EACH IV SCH ×3 (08:17→23:56)
[2020-03-01] MEDS: ASPIRIN EC 325 MG TABLET PO SCH (08:17)
[2020-03-01] MEDS: DILTIAZEM CD 240 MG CAPSULE PO SCH (08:17)
[2020-03-01] MEDS: traMADol 50 MG TABLET PO PRN ×2 (08:17→21:36)
[2020-03-01] MEDS: POTASSIUM CHLORIDE 20 MEQ TABLET PO PRN ×2 (08:17→11:30)
[2020-03-01] MEDS: RIVAROXABAN 20 MG TABLET PO SCH (08:18)
[2020-03-01] MEDS: atenoloL 50 MG TABLET PO SCH ×2 (08:18→21:35)
[2020-03-01] MEDS ORDERED: FAMOTIDINE 20 MG/2 ML VIAL IV ONE (09:58)
[2020-03-01] MEDS ORDERED: methylPREDNISolone SOD SUC 125 MG/2 ML VIAL IV ONE (09:59)
[2020-03-01] MEDS: FERRIC GLUCONATE COMPLEX 125 MG in SODIUM CHLORIDE 0.9% 100 ML IV SCH (10:10)
[2020-03-01] MEDS: SODIUM CHLORIDE 1 GM TABLET PO SCH ×4 (11:34→21:36)
[2020-03-01] MEDS ORDERED: MELATONIN 3 MG TABLET PO ONE (22:41)
[2020-03-02] MEDS: ALBUTEROL/IPRATROPIUM 3 ML NEB RESP TX SCH ×3 (01:50→13:44)
[2020-03-02] MEDS: MEROPENEM 500 MG in SODIUM CHLORIDE 0.9% 100 ML IV SCH ×2 (01:55→10:55)
[2020-03-02] MEDS: traMADol 50 MG TABLET PO PRN ×2 (03:52→10:06)
[2020-03-02] MEDS: LEVOTHYROXINE 50 MCG TABLET PO SCH (05:28)
[2020-03-02 06:34] LABS: Immature Granulocytes % 2.1 %; Lymphocytes # 0.4 10*3/uL (1.4-4.0); Mean Platelet Volume 9.8 FL (9.6-12.0); Monocytes % 6.4 % (1.7-12.7); Neutrophils % 83.5 % (38.7-73.9); Platelet Count 322 T/CUMM (130-400); Red Blood Count 2.94 MC/CUMM (3.8-5.5); Red Cell Distribution Width 16.2 % (9.3-17.3); White Blood Count 4.9 T/CUMM (4-12)
[2020-03-02 06:59] LABS: Albumin 3.8 G/DL (3.4-5.0); Bilirubin,Total 1.4 MG/DL (0.2-1.0); Calcium 8.8 MG/DL (8.5-10.1); Osmolality,Calculated 255.2 MOS/KG (273-304); Total Protein 6.1 G/DL (6.4-8.3)
[2020-03-02] MEDS ORDERED: FUROSEMIDE 40 MG/4 ML VIAL IV ONE (09:07)
[2020-03-02] MEDS: ALBUMIN 25% 25 GM in PREMIX 1 EACH IV SCH (09:58)
[2020-03-02] MEDS: POTASSIUM CHLORIDE 20 MEQ TABLET PO PRN (10:07)
[2020-03-02] MEDS: ASPIRIN EC 325 MG TABLET PO SCH (10:07)
[2020-03-02] MEDS: SODIUM CHLORIDE 1 GM TABLET PO SCH (10:08)
[2020-03-02] MEDS: RIVAROXABAN 20 MG TABLET PO SCH (10:08)
[2020-03-02] MEDS: atenoloL 50 MG TABLET PO SCH (10:08)
[2020-03-02] MEDS: DILTIAZEM CD 240 MG CAPSULE PO SCH (10:08)
[2020-03-02] MEDS: FERRIC GLUCONATE COMPLEX 125 MG in SODIUM CHLORIDE 0.9% 100 ML IV SCH (11:52)
[2020-03-02 11:57] VITALS: BP 150/72
== END 2020-03-02 14:48 | DRG 64 ==
LOC: N.ED 13:43 → SUATTDRO 16:45 → N.EDINP 16:45 → N.CLINP 18:07 → N.TELEN 02-24 21:16
PROVIDERS: ADMIT Internal Medicine; ATTEND Family Medicine

== ENCOUNTER 2021-10-23 19:19 | Inpatient (IN) ==
[2021-10-23] MEDS ORDERED: AZITHROMYCIN INJ 500 MG in SODIUM CHLORIDE 0.9% 250 ML IV STA (21:05)
[2021-10-23] MEDS ORDERED: cefTRIAXone 1,000 MG in SODIUM CHLORIDE 0.9% 100 ML IV STA (21:05)
[2021-10-23] MEDS ORDERED: GLUCAGON 1 MG VIAL IM PRN (21:06)
[2021-10-23] MEDS ORDERED: ACETAMINOPHEN 325 MG TABLET PO PRN ×2 (21:06→22:04)
[2021-10-23] MEDS ORDERED: NICOTINE 21 MG/24 HR PATCH TRANSDERM PRN (21:06)
[2021-10-23] MEDS ORDERED: DOCUSATE SODIUM 100 MG CAPSULE PO PRN (21:06)
[2021-10-23] MEDS ORDERED: guaiFENesin/DM ER 600-30 MG TABLET PO PRN (21:06)
[2021-10-23] MEDS ORDERED: ONDANSETRON 4 MG/2 ML VIAL IV PRN ×2 (21:06→22:04)
[2021-10-23] MEDS ORDERED: DEXTROSE 50% 25 GM/50 ML SYRINGE IV PRN (21:06)
[2021-10-23] MEDS ORDERED: MORPHINE 2 MG/1 ML SYRINGE IV PRN (21:06)
[2021-10-23] MEDS ORDERED: diphenhydrAMINE CAP 25 MG CAPSULE PO PRN (21:06)
[2021-10-23] MEDS ORDERED: ONDANSETRON 4 MG TABLET PO PRN (22:04)
[2021-10-23] MEDS ORDERED: diphenhydrAMINE 50 MG/1 ML VIAL IV PRN (22:04)
[2021-10-23] MEDS ORDERED: MECLIZINE 25 MG TABLET PO PRN (22:04)
[2021-10-23] MEDS ORDERED: CASIRIVIMAB SUBCUT ONE (22:04)
[2021-10-23] MEDS ORDERED: methylPREDNISolone SOD SUC 125 MG/2 ML VIAL IM PRN (22:04)
[2021-10-23] MEDS ORDERED: methylPREDNISolone SOD SUC 125 MG/2 ML VIAL IV PRN ×2 (22:04→23:12)
[2021-10-23] MEDS ORDERED: IMDEVIMAB SUBCUT ONE (22:04)
[2021-10-23 23:14] LABS: Basophils % 0.2 % (0.0-0.8); Hematocrit 23.3 VOL% (35.7-47.0); Hemoglobin 7.3 GM/DL (12.0-16.0); Immature Granulocytes % 0.9 %; Immature Granulocytes Absolute 0.09 #; Lymphocytes # 0.7 10*3/uL (1.4-4.0); Lymphocytes % 7.1 % (21.3-54.2); Mean Corpuscular HGB Conc 31.3 GM/DL (32-36); Mean Corpuscular Volume 70.4 FL (87-102); Mean Platelet Volume 9.1 FL (9.6-12.0); Monocytes % 6.3 % (1.7-12.7); Neutrophils % 85.5 % (38.7-73.9); Platelet Count 382 T/CUMM (130-400); Red Blood Count 3.31 MC/CUMM (3.8-5.5); Red Cell Distribution Width 15.9 % (9.3-17.3); White Blood Count 9.8 T/CUMM (4-12)
[2021-10-23 23:47] LABS: Alanine Aminotransferase 21 U/L (13-56); Albumin 2.9 G/DL (3.4-5.0); Alkaline Phosphatase 93 U/L (45-117); Aspartate Amino Transferase 20 U/L (0-37); Bilirubin,Total < 0.39 MG/DL (0.20-1.00); Blood Urea Nitrogen 21 MG/DL (7-18); Carbon Dioxide 21 MMOL/L (21-32); Estimated Glom Filtration Rate 45 ML/MIN; Glucose 135 MG/DL (74-106); Osmolality,Calculated 253.6 MOS/KG (273-304); Potassium 4.5 MMOL/L (3.5-5.1); Sodium 124 MMOL/L (136-145)
[2021-10-24] MEDS ORDERED: REMDESIVIR 200 MG in SODIUM CHLORIDE 0.9% 210 ML IV ONE (02:00)
[2021-10-24] MEDS: ZALEPLON 5 MG CAPSULE PO PRN ×2 (02:04→03:00)
[2021-10-24] MEDS: ALBUTEROL INHALER 18 GM INH SCH ×5 (03:00→20:23)
[2021-10-24 05:55] LABS: Basophils % 0.1 % (0.0-0.8); Hematocrit 24.3 VOL% (35.7-47.0); Hemoglobin 7.4 GM/DL (12.0-16.0); Immature Granulocytes % 1.3 %; Immature Granulocytes Absolute 0.12 #; Lymphocytes # 0.8 10*3/uL (1.4-4.0); Lymphocytes % 8.3 % (21.3-54.2); Mean Corpuscular HGB Conc 30.5 GM/DL (32-36); Mean Corpuscular Volume 71.1 FL (87-102); Mean Platelet Volume 9.4 FL (9.6-12.0); Monocytes % 9.8 % (1.7-12.7); Neutrophils % 80.5 % (38.7-73.9); Platelet Count 450 T/CUMM (130-400); Red Blood Count 3.42 MC/CUMM (3.8-5.5); Red Cell Distribution Width 15.9 % (9.3-17.3); White Blood Count 9.4 T/CUMM (4-12)
[2021-10-24 06:17] LABS: Alanine Aminotransferase 24 U/L (13-56); Alkaline Phosphatase 96 U/L (45-117); Aspartate Amino Transferase 22 U/L (0-37); Bilirubin,Total < 0.39 MG/DL (0.20-1.00); Blood Urea Nitrogen 19 MG/DL (7-18); Calcium 8.2 MG/DL (8.5-10.1); Carbon Dioxide 21 MMOL/L (21-32); Estimated Glom Filtration Rate 48 ML/MIN; Glucose 128 MG/DL (74-106); Osmolality,Calculated 252.6 MOS/KG (273-304); Potassium 3.7 MMOL/L (3.5-5.1); Sodium 124 MMOL/L (136-145); Total Protein 6.1 G/DL (6.4-8.2)
[2021-10-24] MEDS ORDERED: HEPARIN 5,000 UNIT/1 ML VIAL SUBCUT SCH (09:00)
[2021-10-24] MEDS: DEXAMETHASONE 4 MG TABLET PO SCH (10:00)
[2021-10-24] MEDS: RIVAROXABAN 20 MG TABLET PO SCH (10:00)
[2021-10-24] MEDS: ZINC SULFATE 220 MG CAPSULE PO SCH (10:00)
[2021-10-24] MEDS: FAMOTIDINE 20 MG TABLET PO SCH ×2 (10:00→20:23)
[2021-10-24] MEDS: MEMANTINE 5 MG TABLET PO SCH ×2 (10:00→20:23)
[2021-10-24] MEDS: MULTIVITAMIN (CENTRUM) TABLET PO SCH (11:34)
[2021-10-24] MEDS: ALPRAZolam 0.25 MG TABLET PO PRN (12:25)
[2021-10-24 13:26] LABS: Bilirubin,Urine Negative (Negative); Blood, Urine Large mg/dL (Negative); Glucose,Urine (UA) Negative (Negative); Ketones,Urine Negative (Negative); Nitrite,Urine Negative (Negative); Protein,Urine 100 MG/DL; RBC,Urine 77 /HPF (0-4); Squamous Epithelial Cell,Urine Occasional /HPF (0-10); Urine Appearance CLEAR (Clear); Urine Color Yellow (Yellow); Urine Specific Gravity 1.006 (1.001-1.035); Urine Urobilinogen < 2.0 EU/DL (<2.0)
[2021-10-24] MEDS: SODIUM CHLORIDE 0.9% 1,000 ML IV SCH (14:56)
[2021-10-24] MEDS: cefTRIAXone 2,000 MG in SODIUM CHLORIDE 0.9% 100 ML IV SCH (14:56)
[2021-10-24] MEDS: hydrALAZINE 20 MG/1 ML VIAL IV PRN (16:10)
[2021-10-24] MEDS: QUEtiapine 25 MG TABLET PO SCH (20:23)
[2021-10-24] MEDS ORDERED: cefTRIAXone 1,000 MG in SODIUM CHLORIDE 0.9% 100 ML IV SCH (21:00)
[2021-10-24] MEDS: AZITHROMYCIN INJ 500 MG in SODIUM CHLORIDE 0.9% 250 ML IV SCH (21:38)
[2021-10-25] MEDS: ALBUTEROL INHALER 18 GM INH SCH ×7 (00:40→23:15)
[2021-10-25] MEDS: ZALEPLON 5 MG CAPSULE PO PRN ×2 (01:01→22:29)
[2021-10-25] MEDS: hydrALAZINE 20 MG/1 ML VIAL IV PRN ×2 (04:04→16:08)
[2021-10-25 04:46] LABS: Basophils % 0.1 % (0.0-0.8); Hematocrit 24.5 VOL% (35.7-47.0); Hemoglobin 7.5 GM/DL (12.0-16.0); Lymphocytes # 0.8 10*3/uL (1.4-4.0); Lymphocytes % 8.8 % (21.3-54.2); Mean Corpuscular HGB Conc 30.6 GM/DL (32-36); Mean Corpuscular Volume 70.8 FL (87-102); Mean Platelet Volume 8.7 FL (9.6-12.0); Monocytes % 11.9 % (1.7-12.7); Neutrophils % 78.1 % (38.7-73.9); Platelet Count 421 T/CUMM (130-400); Red Blood Count 3.46 MC/CUMM (3.8-5.5); Red Cell Distribution Width 16.2 % (9.3-17.3); White Blood Count 9.4 T/CUMM (4-12)
[2021-10-25 05:11] LABS: Calcium 7.7 MG/DL (8.5-10.1); Ferritin 12.7 ng/mL (8-252); Osmolality,Calculated 266.5 MOS/KG (273-304); Potassium 3.4 MMOL/L (3.5-5.1)
[2021-10-25] MEDS: FAMOTIDINE 20 MG TABLET PO SCH ×2 (09:18→21:06)
[2021-10-25] MEDS: MULTIVITAMIN (CENTRUM) TABLET PO SCH (09:18)
[2021-10-25] MEDS: RIVAROXABAN 20 MG TABLET PO SCH (09:18)
[2021-10-25] MEDS: ZINC SULFATE 220 MG CAPSULE PO SCH (09:18)
[2021-10-25] MEDS: MEMANTINE 5 MG TABLET PO SCH ×2 (09:18→21:05)
[2021-10-25] MEDS: REMDESIVIR 100 MG in SODIUM CHLORIDE 0.9% 100 ML IV SCH (09:19)
[2021-10-25] MEDS: DEXAMETHASONE 4 MG TABLET PO SCH (10:24)
[2021-10-25] MEDS: cefTRIAXone 2,000 MG in SODIUM CHLORIDE 0.9% 100 ML IV SCH (12:51)
[2021-10-25] MEDS: SODIUM CHLORIDE 0.9% 1,000 ML IV SCH (14:11)
[2021-10-25] MEDS ORDERED: CARBOXYMETHYLCELLULOSE 1% OPH SOLN BOTH EYES PRN (17:44)
[2021-10-25] MEDS: POTASSIUM CHLORIDE 20 MEQ TABLET PO PRN (17:59)
[2021-10-25] MEDS: QUEtiapine 25 MG TABLET PO SCH (21:06)
[2021-10-25] MEDS: AZITHROMYCIN INJ 500 MG in SODIUM CHLORIDE 0.9% 250 ML IV SCH (21:06)
[2021-10-26] MEDS: SODIUM CHLORIDE 0.9% 1,000 ML IV SCH ×2 (02:21→14:17)
[2021-10-26] MEDS: ALBUTEROL INHALER 18 GM INH SCH ×7 (02:21→23:00)
[2021-10-26 05:27] LABS: Basophils % 0.1 % (0.0-0.8); Eosinophils % 0.2 % (0.00-10.9); Hemoglobin 8.3 GM/DL (12.0-16.0); Lymphocytes # 1.8 10*3/uL (1.4-4.0); Lymphocytes % 16.9 % (21.3-54.2); Mean Corpuscular HGB Conc 30.7 GM/DL (32-36); Mean Platelet Volume 9.1 FL (9.6-12.0); Monocytes % 12.9 % (1.7-12.7); Neutrophils % 68.9 % (38.7-73.9); Platelet Count 445 T/CUMM (130-400); Red Blood Count 3.75 MC/CUMM (3.8-5.5); Red Cell Distribution Width 16.5 % (9.3-17.3); White Blood Count 10.3 T/CUMM (4-12)
[2021-10-26 05:41] LABS: Calcium 7.7 MG/DL (8.5-10.1); Ferritin 12.3 ng/mL (8-252); Osmolality,Calculated 263.5 MOS/KG (273-304); Potassium 3.4 MMOL/L (3.5-5.1)
[2021-10-26] MEDS: REMDESIVIR 100 MG in SODIUM CHLORIDE 0.9% 100 ML IV SCH (09:00)
[2021-10-26] MEDS: POTASSIUM CHLORIDE 20 MEQ TABLET PO PRN ×3 (09:01→14:16)
[2021-10-26] MEDS: ZINC SULFATE 220 MG CAPSULE PO SCH (09:01)
[2021-10-26] MEDS: FAMOTIDINE 20 MG TABLET PO SCH ×2 (09:01→20:05)
[2021-10-26] MEDS: RIVAROXABAN 20 MG TABLET PO SCH (09:01)
[2021-10-26] MEDS: DEXAMETHASONE 4 MG TABLET PO SCH (09:01)
[2021-10-26] MEDS: MEMANTINE 5 MG TABLET PO SCH (09:01)
[2021-10-26] MEDS: MULTIVITAMIN (CENTRUM) TABLET PO SCH (09:01)
[2021-10-26] MEDS: hydrALAZINE 20 MG/1 ML VIAL IV PRN ×3 (09:52→21:35)
[2021-10-26] MEDS: cefTRIAXone 2,000 MG in SODIUM CHLORIDE 0.9% 100 ML IV SCH (14:16)
[2021-10-26] MEDS: atenoloL 50 MG TABLET PO SCH (14:16)
[2021-10-26] MEDS: DILTIAZEM CD 120 MG CAPSULE PO SCH ×2 (14:16→20:05)
[2021-10-26] MEDS ORDERED: MAGNESIUM SULF RIDER 4 GM/100 ML PREMIX IV PRN (14:29)
[2021-10-26] MEDS ORDERED: MAGNESIUM SULF RIDER 2 GM/50 ML PREMIX IV PRN (14:29)
[2021-10-26] MEDS: DOCUSATE SODIUM 100 MG CAPSULE PO SCH (15:08)
[2021-10-26] MEDS: ASPIRIN EC 81 MG TABLET PO SCH (15:08)
[2021-10-26] MEDS: CLOPIDOGREL 75 MG TABLET PO SCH (15:08)
[2021-10-26] MEDS: CHOLECALCIFEROL 1,000 UNIT TABLET PO SCH (15:09)
[2021-10-26] MEDS: ZALEPLON 5 MG CAPSULE PO PRN (20:05)
[2021-10-26] MEDS: AZITHROMYCIN INJ 500 MG in SODIUM CHLORIDE 0.9% 250 ML IV SCH ×2 (20:05→21:45)
[2021-10-26] MEDS ORDERED: ROSUVASTATIN 10 MG TABLET PO SCH (21:00)
[2021-10-26] MEDS: ALPRAZolam 0.25 MG TABLET PO PRN (21:35)
[2021-10-27] MEDS: ALBUTEROL INHALER 18 GM INH SCH ×4 (04:10→15:00)
[2021-10-27] MEDS: hydrALAZINE 20 MG/1 ML VIAL IV PRN (04:10)
[2021-10-27 05:58] LABS: Basophils % 0.1 % (0.0-0.8); Eosinophils % 0.1 % (0.00-10.9); Hematocrit 28.1 VOL% (35.7-47.0); Hemoglobin 8.6 GM/DL (12.0-16.0); Lymphocytes # 1.4 10*3/uL (1.4-4.0); Lymphocytes % 12.3 % (21.3-54.2); Mean Corpuscular HGB Conc 30.6 GM/DL (32-36); Mean Corpuscular Volume 71.7 FL (87-102); Mean Platelet Volume 9.2 FL (9.6-12.0); Monocytes % 9.9 % (1.7-12.7); Neutrophils % 76.6 % (38.7-73.9); Platelet Count 511 T/CUMM (130-400); Red Blood Count 3.92 MC/CUMM (3.8-5.5); Red Cell Distribution Width 16.7 % (9.3-17.3); White Blood Count 11.2 T/CUMM (4-12)
[2021-10-27 06:17] LABS: Calcium 8.2 MG/DL (8.5-10.1); Osmolality,Calculated 263.5 MOS/KG (273-304); Potassium 3.8 MMOL/L (3.5-5.1)
[2021-10-27] MEDS ORDERED: LEVOTHYROXINE 50 MCG TABLET PO SCH (06:30)
[2021-10-27] MEDS: ZINC SULFATE 220 MG CAPSULE PO SCH (09:00)
[2021-10-27] MEDS: CLOPIDOGREL 75 MG TABLET PO SCH (09:00)
[2021-10-27] MEDS: MULTIVITAMIN (CENTRUM) TABLET PO SCH (09:00)
[2021-10-27] MEDS: CHOLECALCIFEROL 1,000 UNIT TABLET PO SCH (09:00)
[2021-10-27] MEDS: DOCUSATE SODIUM 100 MG CAPSULE PO SCH (09:00)
[2021-10-27] MEDS: DEXAMETHASONE 4 MG TABLET PO SCH (09:00)
[2021-10-27] MEDS: DILTIAZEM CD 120 MG CAPSULE PO SCH (09:00)
[2021-10-27] MEDS ORDERED: hydroCHLOROthiazide 12.5 MG CAPSULE PO SCH (09:00)
[2021-10-27] MEDS ORDERED: ENOXAPARIN 40 MG/0.4 ML SYRINGE SUBCUT SCH (09:00)
[2021-10-27] MEDS: FAMOTIDINE 20 MG TABLET PO SCH (09:00)
[2021-10-27] MEDS: ASPIRIN EC 81 MG TABLET PO SCH (09:00)
[2021-10-27] MEDS: atenoloL 50 MG TABLET PO SCH (09:00)
[2021-10-27] MEDS: SODIUM CHLORIDE 0.9% 1,000 ML IV SCH (09:58)
[2021-10-27] MEDS: REMDESIVIR 100 MG in SODIUM CHLORIDE 0.9% 100 ML IV SCH (09:58)
[2021-10-27 10:00] VITALS: BP 168/103
[2021-10-27] MEDS: cefTRIAXone 2,000 MG in SODIUM CHLORIDE 0.9% 100 ML IV SCH (12:21)
== END 2021-10-27 16:45 | disposition home health service (06) | DRG 177 ==
LOC: EDUNIT# → EDBD → N.ED 19:19 → N.EDINP 21:06 → SUATTDRO 21:06 → N.CC 10-24 00:57
PROVIDERS: ADMIT Emergency Medicine; ATTEND Internal Medicine